=== PATIENT | female | born 1950 | race Caucasian/White ===

== ENCOUNTER 2018-08-01 18:16 | Emergency (ER) | payer MEDICARE, OTHER ==
[~2018-08-01] VITALS: Ht 177.8 cm; Wt 61.0 kg
[2018-08-01] MEDS ORDERED: HYDROmorphone 1 mg/ml syringe IV ONE ×5 (18:40→21:45)
[2018-08-01] MEDS ORDERED: HYDR2TAB28 PO (19:32)
[2018-08-01] MEDS ORDERED: SPIR25TA5 PO (19:32)
[2018-08-01] MEDS ORDERED: MORP30CA16 PO (19:32)
[2018-08-01] MEDS ORDERED: LISI-600 PO (19:32)
[2018-08-01] MEDS ORDERED: METO-292 PO ×2 (19:32)
[2018-08-01] MEDS ORDERED: FURO-150 PO (19:32)
[2018-08-01] MEDS ORDERED: DULO-31 PO (19:32)
[2018-08-01 19:47] LABS: BASOPHILS % (AUTO) 0 % (0-1); EOSINOPHILS # (AUTO) 0.2 X10'3 (0-0.9); EOSINOPHILS % (AUTO) 1.4 % (0-6); HEMATOCRIT 34.7 % (35.0-45.0); HEMOGLOBIN 11.4 g/dl (12.0-16.0); LYMPHOCYTES % (AUTO) 6.2 % (21-51); MEAN CORPUSCULAR HEMOGLOBIN 26.6 PG (27.0-31.0); MEAN CORPUSCULAR HGB CONC 32.8 % (33.0-36.5); MEAN CORPUSCULAR VOLUME 81.1 FL (78-98); MEAN PLATELET VOLUME 7.3 FL (7.4-10.4); MONOCYTES # (AUTO) 1.1 X10'3 (0-0.9); MONOCYTES % (AUTO) 6.4 % (2-12); NEUTROPHILS # (AUTO) 14.1 X10'3 (1.8-7.7); PLATELET COUNT 417 X10'3 (140-440); RED BLOOD COUNT 4.28 X10'6 (4.20-5.60); RED CELL DISTRIBUTION WIDTH 14.6 % (11.5-14.5); WHITE BLOOD COUNT 16.4 X10'3 (4.5-11.0)
[2018-08-01 20:02] LABS: ALANINE AMINOTRANSFERASE 28 U/L (12-78); ALBUMIN 3.9 G/DL (3.4-5.0); ALBUMIN/GLOBULIN RATIO 1.2 (1.1-1.5); ALKALINE PHOSPHATASE 126 IU/L (46-116); ANION GAP 12 (8-16); ASPARTATE AMINO TRANSFERASE 29 U/L (10-37); BILIRUBIN,TOTAL 0.7 MG/DL (0.1-1.0); BLOOD UREA NITROGEN 17 MG/DL (7-18); BUN/CREATININE RATIO 15.5 (6.6-38.0); CALCIUM 9.1 MG/DL (8.5-10.1); CHLORIDE 85 MMOL/L (99-107); GLUCOSE 130 MG/DL (70-104); TOTAL CARBON DIOXIDE 29.1 MMOL/L (24-32); TOTAL PROTEIN 7.1 G/DL (6.4-8.2); eGFR 49 ML/MIN
[2018-08-01 20:15] LABS: POTASSIUM 2.2 MMOL/L (3.5-5.1)
[2018-08-01 20:16] LABS: SODIUM 126 MMOL/L (135-145)
[2018-08-01] MEDS: potassium 10mEq/100ml NS w/LIDOcaine (10mg/bag) IV SCH ×2 (20:41→21:46)
[2018-08-01 21:14] LABS: COLOR,URINE YELLOW (Yellow); GLUCOSE, URINE NEGATIVE (Neg); KETONES,URINE NEGATIVE (Neg); LEUKOCYTE ESTERASE ,URINE SMALL (Neg); NITRITES, URINE NEGATIVE (Neg); OCCULT BLOOD,URINE NEGATIVE (Neg); PH,URINE 5.5 (4.8-8.0); PROTEIN,URINE NEGATIVE (Neg); UROBILINOGEN,URINE 0.2 E.U/dL (0.2-1.0)
[2018-08-01 21:20] LABS: UA COLLECTION TYPE OTHER
[2018-08-01 21:21] LABS: CLARITY,URINE SLIGHTLY CLOUDY (Clear)
[2018-08-01 21:46] LABS: BACTERIA,URINE FEW /HPF (Neg); RBC,URINE NONE SEEN /HPF (0-2); SQUAMOUS EPITHELIAL CELL,UR MODERATE /LPF (FEW); TRANSITIONAL EPI CELLS,URINE FEW /HPF
[2018-08-01] MEDS ORDERED: HYDR8TAB16 PO (21:51)
[2018-08-01] MEDS ORDERED: [UNRECOGNIZED DRUG - CODE] PO (21:51)
[2018-08-01 22:11] LABS: ANISOCYTOSIS FEW; PLATELET ESTIMATE NORMAL; TOTAL CELLS COUNTED 100
[2018-08-01 22:12] LABS: TOXIC GRANULATION 1+
[2018-08-01 22:30] VITALS: BP 143/64
[2018-08-01 23:47] LABS: ALANINE AMINOTRANSFERASE 27 U/L (12-78); ALBUMIN 3.5 G/DL (3.4-5.0); ALBUMIN/GLOBULIN RATIO 1.1 (1.1-1.5); ALKALINE PHOSPHATASE 135 IU/L (46-116); ANION GAP 13 (8-16); ASPARTATE AMINO TRANSFERASE 29 U/L (10-37); BILIRUBIN,TOTAL 1.1 MG/DL (0.1-1.0); BLOOD UREA NITROGEN 17 MG/DL (7-18); BUN/CREATININE RATIO 13.4 (6.6-38.0); CHLORIDE 88 MMOL/L (99-107); CREATININE 1.27 MG/DL (0.40-0.90); GLUCOSE 143 MG/DL (70-104); SODIUM 128 MMOL/L (135-145); TOTAL CARBON DIOXIDE 27.5 MMOL/L (24-32); TOTAL PROTEIN 6.8 G/DL (6.4-8.2); eGFR 42 ML/MIN
[2018-08-01 23:52] LABS: POTASSIUM 2.6 MMOL/L (3.5-5.1)
[2018-08-02] MEDS ORDERED: HYDROmorphone 1 mg/ml syringe IV STA (00:10)
[2018-08-02] MEDS ORDERED: POTA10CA44 PO (00:14)
== END 2018-08-02 01:32 | disposition home or self-care (01) ==
LOC: ER 18:16
DX: S42.212A Unspecified displaced fracture of surgical neck of left humerus, initial encounter for closed fracture (principal); S30.810A Abrasion of lower back and pelvis, initial encounter; E87.6 Hypokalemia; E87.1 Hypo-osmolality and hyponatremia; J44.9 Chronic obstructive pulmonary disease, unspecified; I11.0 Hypertensive heart disease with heart failure; I50.9 Heart failure, unspecified; K31.84 Gastroparesis; Z90.710 Acquired absence of both cervix and uterus; Z60.2 Problems related to living alone; Z85.42 Personal history of malignant neoplasm of other parts of uterus; W01.0XXA Fall on same level from slipping, tripping and stumbling without subsequent striking against object, initial encounter; Y93.89 Activity, other specified; Y92.89 Other specified places as the place of occurrence of the external cause; Y99.8 Other external cause status
CPT/HCPCS: 29105; 36415; 71045; 72100; 73030; 80053; 81001; 85025; 87088; 96365; 96366; 96375; 96376; 99285; J1170; J3480

== ENCOUNTER 2019-06-12 12:49 | Emergency (ER) | payer MEDICARE, OTHER ==
[~2019-06-12] VITALS: Ht 177.8 cm; Wt 61.4 kg
[~2019-06-12 12:49] MED LIST: DULO-31 PO; FURO-150 PO; HYDR2TAB28 PO; LISI-600 PO; METO-292 PO; MORP30CA16 PO; SPIR25TA5 PO
[2019-06-12] MEDS ORDERED: HYDROcodone/acetaminophen 5mg/325mg tablet PO ONE (13:10)
--- NOTE | 2019-06-12 13:19 | NUR ---
RING WAS REMOVED FROM 4TH RIGHT DIGIT WITH LUBRICATION AND ABIGAIL VICK. NO ACTIVE BLEEDING. PT TOLERATED PROCEDURE WELL.
--- NOTE | 2019-06-12 13:41 | NUR ---
VASCULAR CALLED BACK AND IS ON THE WAY TO PERFORM TEST PER ORDERS
[2019-06-12 13:43] LABS: BASOPHILS # (AUTO) 0.1 X10'3 (0-0.2); EOSINOPHILS % (AUTO) 0.5 % (0-6); HEMATOCRIT 35.6 % (35.0-45.0); HEMOGLOBIN 11.8 g/dl (12.0-16.0); LYMPHOCYTES # (AUTO) 1.9 X10'3 (1.1-4.8); LYMPHOCYTES % (AUTO) 19.3 % (21-51); MEAN CORPUSCULAR HEMOGLOBIN 27.2 PG (27.0-31.0); MEAN CORPUSCULAR HGB CONC 33.3 g/dL (33.0-36.5); MEAN CORPUSCULAR VOLUME 81.9 FL (78-98); MEAN PLATELET VOLUME 7.9 FL (7.4-10.4); MONOCYTES # (AUTO) 0.7 X10'3 (0-0.9); MONOCYTES % (AUTO) 7.4 % (2-12); NEUTROPHILS # (AUTO) 7.1 X10'3 (1.8-7.7); NEUTROPHILS % (AUTO) 71.8 % (42-75); PLATELET COUNT 368 X10'3 (140-440); RED BLOOD COUNT 4.35 X10'6 (4.20-5.60); RED CELL DISTRIBUTION WIDTH 15.2 % (11.5-14.5); WHITE BLOOD COUNT 9.9 X10'3 (4.5-11.0)
--- NOTE | 2019-06-12 13:46 | NUR ---
vascular at bedside
[2019-06-12 14:02] LABS: PARTIAL THROMBOPLASTIN TIME 26 SECONDS (22-32)
[2019-06-12 14:09] LABS: ALANINE AMINOTRANSFERASE 24 U/L (12-78); ALBUMIN 3.5 G/DL (3.4-5.0); ALBUMIN/GLOBULIN RATIO 0.8 (1.1-1.5); ALKALINE PHOSPHATASE 182 IU/L (46-116); ANION GAP 12 (8-16); ASPARTATE AMINO TRANSFERASE 19 U/L (10-37); BILIRUBIN,TOTAL 0.3 MG/DL (0.1-1.0); C-REACTIVE PROTEIN 3.38 MG/DL (0.0-0.5); CALCIUM 9.1 MG/DL (8.5-10.1); CHLORIDE 103 MMOL/L (99-107); CREATININE 0.94 MG/DL (0.40-0.90); GLUCOSE 93 MG/DL (70-104); SODIUM 140 MMOL/L (135-145); TOTAL CARBON DIOXIDE 25.1 MMOL/L (24-32); TOTAL PROTEIN 7.7 G/DL (6.4-8.2); eGFR 59 ML/MIN
[2019-06-12 14:14] LABS: POTASSIUM 2.9 MMOL/L (3.5-5.1)
[2019-06-12] MEDS ORDERED: potassium Cl 20 mEq SR tablet PO STA (14:16)
[2019-06-12 14:26] LABS: BLOOD UREA NITROGEN 14 MG/DL (7-18); BUN/CREATININE RATIO 14.9 (6.6-38.0)
[2019-06-12] MEDS ORDERED: CLIN-96 PO (14:39)
[2019-06-12] MEDS ORDERED: HYDR-4384 PO (14:39)
[2019-06-12] MEDS ORDERED: morphine 4 MG/ML inj SYRINge IM ONE (14:40)
[2019-06-12] MEDS ORDERED: clindamycin 150mg capsule PO ONE (14:55)
[2019-06-12 15:08] VITALS: BP 123/81
== END 2019-06-12 15:10 | disposition home or self-care (01) ==
LOC: ER 12:50
DX: L03.113 Cellulitis of right upper limb (principal); I11.0 Hypertensive heart disease with heart failure; I50.9 Heart failure, unspecified; J44.9 Chronic obstructive pulmonary disease, unspecified; M19.90 Unspecified osteoarthritis, unspecified site; I38 Endocarditis, valve unspecified; F17.200 Nicotine dependence, unspecified, uncomplicated; Z90.710 Acquired absence of both cervix and uterus; Z79.2 Long term (current) use of antibiotics; Z79.899 Other long term (current) drug therapy
CPT/HCPCS: 36415; 73130; 80053; 83605; 84145; 85025; 85610; 85651; 85730; 86140; 93971; 96372; 99284; J2270; 96374

== ENCOUNTER 2019-06-14 11:57 | Emergency (ER) | payer MEDICARE, OTHER ==
[~2019-06-14] VITALS: Ht 177.8 cm; Wt 60.5 kg
[~2019-06-14 11:57] MED LIST changes: +CLIN-96 PO; +HYDR-4384 PO
[2019-06-14 11:58] VITALS: BP 155/81
[2019-06-14 14:48] LABS: BASOPHILS # (AUTO) 0.1 X10'3 (0-0.2); BASOPHILS % (AUTO) 1.1 % (0-1); EOSINOPHILS # (AUTO) 0.1 X10'3 (0-0.9); EOSINOPHILS % (AUTO) 0.7 % (0-6); HEMATOCRIT 35.6 % (35.0-45.0); HEMOGLOBIN 11.7 g/dl (12.0-16.0); LYMPHOCYTES # (AUTO) 1.7 X10'3 (1.1-4.8); LYMPHOCYTES % (AUTO) 19.9 % (21-51); MEAN CORPUSCULAR HEMOGLOBIN 27.2 PG (27.0-31.0); MEAN CORPUSCULAR HGB CONC 32.9 g/dL (33.0-36.5); MEAN CORPUSCULAR VOLUME 82.5 FL (78-98); MEAN PLATELET VOLUME 8.2 FL (7.4-10.4); MONOCYTES # (AUTO) 0.7 X10'3 (0-0.9); MONOCYTES % (AUTO) 7.8 % (2-12); NEUTROPHILS # (AUTO) 5.9 X10'3 (1.8-7.7); NEUTROPHILS % (AUTO) 70.5 % (42-75); PLATELET COUNT 352 X10'3 (140-440); RED BLOOD COUNT 4.31 X10'6 (4.20-5.60); RED CELL DISTRIBUTION WIDTH 15.4 % (11.5-14.5); WHITE BLOOD COUNT 8.4 X10'3 (4.5-11.0)
[2019-06-14 15:04] LABS: ALANINE AMINOTRANSFERASE 23 U/L (12-78); ALBUMIN 3.4 G/DL (3.4-5.0); ALBUMIN/GLOBULIN RATIO 0.8 (1.1-1.5); ALKALINE PHOSPHATASE 175 IU/L (46-116); ANION GAP 10 (8-16); ASPARTATE AMINO TRANSFERASE 24 U/L (10-37); BILIRUBIN,TOTAL 0.3 MG/DL (0.1-1.0); BLOOD UREA NITROGEN 13 MG/DL (7-18); BUN/CREATININE RATIO 14.8 (6.6-38.0); C-REACTIVE PROTEIN 2.11 MG/DL (0.0-0.5); CALCIUM 9.5 MG/DL (8.5-10.1); CHLORIDE 103 MMOL/L (99-107); CREATININE 0.88 MG/DL (0.40-0.90); GLUCOSE 104 MG/DL (70-104); POTASSIUM 3.1 MMOL/L (3.5-5.1); SODIUM 140 MMOL/L (135-145); TOTAL CARBON DIOXIDE 27.5 MMOL/L (24-32); TOTAL PROTEIN 7.8 G/DL (6.4-8.2); eGFR 64 ML/MIN
[2019-06-14] MEDS ORDERED: AMOX-422 PO (15:04)
== END 2019-06-14 15:37 | disposition home or self-care (01) ==
LOC: ER 11:57
DX: L03.113 Cellulitis of right upper limb (principal); I11.0 Hypertensive heart disease with heart failure; I50.9 Heart failure, unspecified; J44.9 Chronic obstructive pulmonary disease, unspecified; M19.90 Unspecified osteoarthritis, unspecified site; Z90.710 Acquired absence of both cervix and uterus; Z79.899 Other long term (current) drug therapy
CPT/HCPCS: 36415; 80053; 85025; 85610; 85651; 86140; 99284

== ENCOUNTER 2019-06-16 11:58 | Emergency (ER) | payer MEDICARE, OTHER ==
[~2019-06-16] VITALS: Ht 177.8 cm; Wt 60.0 kg
[~2019-06-16 11:58] MED LIST changes: +AMOX-422 PO; +CLIN-90 PO; -CLIN-96 PO
--- NOTE | 2019-06-16 14:07 | NUR ---
Break RN: Souleymane COFFEY at bedside.
[2019-06-16 14:43] LABS: BASOPHILS # (AUTO) 0.1 X10'3 (0-0.2); BASOPHILS % (AUTO) 0.6 % (0-1); EOSINOPHILS % (AUTO) 0.4 % (0-6); HEMATOCRIT 34.7 % (35.0-45.0); HEMOGLOBIN 11.6 g/dl (12.0-16.0); LYMPHOCYTES # (AUTO) 1.4 X10'3 (1.1-4.8); LYMPHOCYTES % (AUTO) 15.1 % (21-51); MEAN CORPUSCULAR HEMOGLOBIN 27.3 PG (27.0-31.0); MEAN CORPUSCULAR HGB CONC 33.5 g/dL (33.0-36.5); MEAN CORPUSCULAR VOLUME 81.4 FL (78-98); MEAN PLATELET VOLUME 7.9 FL (7.4-10.4); MONOCYTES # (AUTO) 0.7 X10'3 (0-0.9); MONOCYTES % (AUTO) 7.5 % (2-12); NEUTROPHILS % (AUTO) 76.4 % (42-75); PLATELET COUNT 371 X10'3 (140-440); RED BLOOD COUNT 4.26 X10'6 (4.20-5.60); RED CELL DISTRIBUTION WIDTH 15.1 % (11.5-14.5); WHITE BLOOD COUNT 9.2 X10'3 (4.5-11.0)
[2019-06-16 14:57] LABS: ALANINE AMINOTRANSFERASE 20 U/L (12-78); ALBUMIN 3.3 G/DL (3.4-5.0); ALBUMIN/GLOBULIN RATIO 0.8 (1.1-1.5); ALKALINE PHOSPHATASE 190 IU/L (46-116); ANION GAP 11 (8-16); ASPARTATE AMINO TRANSFERASE 16 U/L (10-37); BILIRUBIN,TOTAL 0.3 MG/DL (0.1-1.0); BLOOD UREA NITROGEN 12 MG/DL (7-18); BUN/CREATININE RATIO 13.6 (6.6-38.0); C-REACTIVE PROTEIN 1.74 MG/DL (0.0-0.5); CALCIUM 9.1 MG/DL (8.5-10.1); CHLORIDE 103 MMOL/L (99-107); CREATININE 0.88 MG/DL (0.40-0.90); GLUCOSE 102 MG/DL (70-104); SODIUM 142 MMOL/L (135-145); TOTAL CARBON DIOXIDE 28.2 MMOL/L (24-32); TOTAL PROTEIN 7.6 G/DL (6.4-8.2); eGFR 64 ML/MIN
[2019-06-16] MEDS ORDERED: potassium Cl 20 mEq SR tablet PO STA (15:04)
[2019-06-16] MEDS ORDERED: HYDROcodone/acetaminophen 5mg/325mg tablet PO ONE (15:10)
[2019-06-16] MEDS ORDERED: colchicine 0.6mg tablet PO ONE (15:25)
[2019-06-16] MEDS ORDERED: CLIN300C17 PO (15:25)
[2019-06-16] MEDS ORDERED: HYDR-4383 PO (15:46)
[2019-06-16] MEDS ORDERED: COLC0.6T69 PO (15:46)
[2019-06-16 16:14] VITALS: BP 131/72
== END 2019-06-16 17:00 | disposition home or self-care (01) ==
LOC: ER 11:59
DX: M13.841 Other specified arthritis, right hand (principal); I11.0 Hypertensive heart disease with heart failure; I50.9 Heart failure, unspecified; J44.9 Chronic obstructive pulmonary disease, unspecified; Z90.710 Acquired absence of both cervix and uterus; Z79.899 Other long term (current) drug therapy
CPT/HCPCS: 36415; 80053; 85025; 85651; 86140; 99284

== ENCOUNTER 2020-11-15 23:06 | Emergency (ER) | payer MEDICARE, OTHER ==
[~2020-11-15] VITALS: Ht 177.8 cm; Wt 68.2 kg
[~2020-11-15 23:06] MED LIST changes: -AMOX-422 PO; -CLIN-90 PO; +CLIN300C17 PO; +COLC0.6T72 PO; -DULO-31 PO; -FURO-150 PO; +HYDR-4383 PO; -HYDR-4384 PO; -HYDR2TAB28 PO; -LISI-600 PO; -METO-292 PO; -MORP30CA16 PO; -SPIR25TA5 PO
--- NOTE | 2020-11-15 23:08 | NUR ---
POSION CONTROL CALLED PT TOOK 72 MIRTAZAPINE 15MG AROUND 2229
--- NOTE | 2020-11-15 23:11 | NUR ---
POSION CONTROL SAID PAY ATTENTION FOR SEDATION, TACHY OR BRADYCARDIA, HYPO OR HYPERTENSION, CHARCOL IS ADVISED IF NO ASPIRATION PRECAUTIONS, MONITOR FOR A MIN OF 6 HRS IF PT STAYS AT BASELINE. GET ASPIRIN AND TYLENOL LEVELS.
[2020-11-15] MEDS ORDERED: charcoal/sorbitol 25GM/120ML oral SUSPension PO ONE (23:20)
[2020-11-15 23:28] LABS: HEMOGLOBIN 12.7 g/dl (12.0-16.0); MEAN CORPUSCULAR VOLUME 87.3 FL (78-98)
[2020-11-15 23:30] LABS: BASOPHILS # (AUTO) 0.1 X10'3 (0-0.2); BASOPHILS % (AUTO) 0.9 % (0-1); EOSINOPHILS # (AUTO) 0.1 X10'3 (0-0.9); HEMATOCRIT 37.4 % (35.0-45.0); LYMPHOCYTES # (AUTO) 2.2 X10'3 (1.1-4.8); MEAN CORPUSCULAR HEMOGLOBIN 29.8 PG (27.0-31.0); MEAN CORPUSCULAR HGB CONC 34.1 g/dL (33.0-36.5); MONOCYTES # (AUTO) 0.5 X10'3 (0-0.9); MONOCYTES % (AUTO) 6.2 % (2-12); NEUTROPHILS # (AUTO) 5.5 X10'3 (1.8-7.7); NEUTROPHILS % (AUTO) 65.9 % (42-75); PLATELET COUNT 240 X10'3 (140-440); RED BLOOD COUNT 4.28 X10'6 (4.20-5.60); RED CELL DISTRIBUTION WIDTH 12.5 % (11.5-14.5); WHITE BLOOD COUNT 8.3 X10'3 (4.5-11.0)
--- NOTE | 2020-11-16 00:03 | NUR ---
PT DRINKING CHARCOAL, WITH DIFFICULT FROM TASTE BUT NO ASPIRATION, WILL CONTINUE TO MONITOR
[2020-11-16 00:04] LABS: ALANINE AMINOTRANSFERASE 32 U/L (12-78); ALBUMIN 3.5 G/DL (3.4-5.0); ALKALINE PHOSPHATASE 207 IU/L (46-116); ANION GAP 13 (8-16); ASPARTATE AMINO TRANSFERASE 32 U/L (10-37); BILIRUBIN,TOTAL 0.2 MG/DL (0.1-1.0); BLOOD UREA NITROGEN 18 MG/DL (7-18); BUN/CREATININE RATIO 15.3 (6.6-38.0); CHLORIDE 105 MMOL/L (99-107); CREATININE 1.18 MG/DL (0.40-0.90); GLUCOSE 154 MG/DL (70-104); SODIUM 140 MMOL/L (135-145); TOTAL CARBON DIOXIDE 21.8 MMOL/L (24-32); eGFR 45 ML/MIN
[2020-11-16 00:13] LABS: ACETAMINOPHEN < 2.0 UG/ML (10-30)
[2020-11-16 00:14] LABS: ETHANOL 0.038 GM/DL (0.0-0.010)
[2020-11-16 00:36] LABS: POTASSIUM 3.2 MMOL/L (3.5-5.1)
[2020-11-16 02:01] LABS: URINE AMPHETAMINE SCREEN NEGATIVE (Neg); URINE BARBITUATE SCREEN NEGATIVE (Neg); URINE BENZODIAZEPINES SCREEN NEGATIVE (Neg); URINE CANNABINOID SCREEN POSITIVE (Neg); URINE COCAINE SCREEN NEGATIVE (Neg); URINE METHADONE SCREEN NEGATIVE (Neg); URINE OPIATE SCREEN NEGATIVE (Neg); URINE PHENCYCLIDINE SCREEN NEGATIVE (Neg)
[2020-11-16] MEDS ORDERED: potassium Cl 20 mEq SR tablet PO STA (02:09)
[2020-11-16] MEDS ORDERED: magnesium oxide 400mg tablet PO ONE (02:10)
--- NOTE | 2020-11-16 03:00 | NUR ---
pt did not want to swallow medications at this time. she asked if she could in the morning. dr davila is aware and rdered am retime of medications
--- NOTE | 2020-11-16 06:57 | NUR ---
PACKET FAXED TO [facility]
[2020-11-16] MEDS ORDERED: potassium Cl 20 mEq SR tablet PO SCH (07:00)
[2020-11-16] MEDS ORDERED: magnesium oxide 400mg tablet PO SCH (07:00)
[2020-11-16 08:31] VITALS: BP 114/70
== END 2020-11-16 10:09 ==
LOC: ER 23:06
DX: T43.022A Poisoning by tetracyclic antidepressants, intentional self-harm, initial encounter (principal); I11.0 Hypertensive heart disease with heart failure; I50.9 Heart failure, unspecified; J44.9 Chronic obstructive pulmonary disease, unspecified; M19.90 Unspecified osteoarthritis, unspecified site; Z90.710 Acquired absence of both cervix and uterus; Z60.2 Problems related to living alone; Z79.899 Other long term (current) drug therapy; Y92.89 Other specified places as the place of occurrence of the external cause
CPT/HCPCS: 71045; 74018; 80053; 80305; 80320; 80329; 83880; 84484; 85025; 93005; 99285

== ENCOUNTER 2021-06-07 03:22 | Inpatient (IN) | payer MEDICARE, OTHER ==
[~2021-06-07] VITALS: Ht 172.7 cm; Wt 65.5 kg
[2021-06-07] VITALS (16 sets, daily range): BP systolic 88–140; BP diastolic 50–94
[2021-06-07] MEDS ORDERED: pantoprazole 40 MG vial IV STA (03:23)
[2021-06-07] MEDS ORDERED: MIDAZolam 5mg/ml 2ml vial IV STA (03:23)
[2021-06-07] MEDS ORDERED: famotidine/PF 10 mg/ml inj IV STA (03:23)
[2021-06-07] MEDS ORDERED: rocuronium 10mg/ml inj IV ONE ×2 (03:25→08:00)
[2021-06-07] MEDS ORDERED: etomidate 2mg/ml inj. IV ONE (03:25)
[2021-06-07] MEDS: midazolam 100mg in NS 100ml 100 ML IV PRN (03:50)
[2021-06-07 04:02] LABS: ABG BASE EXCESS -2.1 mmol/L (-2.0-2.0); ABG HCO3 23.1 mmol/L (22.0-26.0); ABG PCO2 (T) 41.2 mmHg (32.0-45.0); ABG PO2 (T) 182.9 mmHg (75.0-100.0); PEEP 5 cm H2O; RESPIRATORY RATE 16 b/min; TIDAL VOLUME 400 mL
[2021-06-07] MEDS: FENTANYL-0.9 % NACL/PF 100 ML IV PRN ×4 (04:02→20:38)
[2021-06-07 04:06] LABS: BASOPHILS % (AUTO) 0.4 % (0-1); EOSINOPHILS # (AUTO) 0.1 X10'3 (0-0.9); HEMATOCRIT 36.5 % (35.0-45.0); HEMOGLOBIN 12.2 g/dl (12.0-16.0); LYMPHOCYTES # (AUTO) 1.2 X10'3 (1.1-4.8); LYMPHOCYTES % (AUTO) 9.9 % (21-51); MEAN CORPUSCULAR HEMOGLOBIN 29.5 PG (27.0-31.0); MEAN CORPUSCULAR HGB CONC 33.3 g/dL (33.0-36.5); MEAN CORPUSCULAR VOLUME 88.5 FL (78-98); MEAN PLATELET VOLUME 9.9 FL (7.4-10.4); MONOCYTES # (AUTO) 0.7 X10'3 (0-0.9); MONOCYTES % (AUTO) 5.6 % (2-12); NEUTROPHILS % (AUTO) 83.1 % (42-75); PLATELET COUNT 219 X10'3 (140-440); RED BLOOD COUNT 4.13 X10'6 (4.20-5.60); RED CELL DISTRIBUTION WIDTH 12.9 % (11.5-14.5)
[2021-06-07] MEDS ORDERED: BACL10TA PO (04:07)
[2021-06-07] MEDS ORDERED: BUPR150T27 PO (04:07)
[2021-06-07] MEDS ORDERED: NAPR500T6 PO (04:07)
[2021-06-07] MEDS ORDERED: HYDR-3686 PO (04:07)
[2021-06-07] MEDS ORDERED: MIRT-87 PO (04:07)
[2021-06-07] MEDS ORDERED: NAPR375T5 PO (04:07)
[2021-06-07] MEDS: pantoprazole 40MG/NS 100ML BAG 100 ML IV SCH ×4 (04:11→19:10)
--- NOTE | 2021-06-07 04:20 | NUR ---
PT TO CT ACCOMPANIED BY SCARLET, RT, CT AND SOFÍA RN W/ MONITOR AND BAG VALVE RESPIRATIONS.
[2021-06-07 04:21] LABS: ALANINE AMINOTRANSFERASE 25 U/L (12-78); ALBUMIN 3.8 G/DL (3.4-5.0); ALBUMIN/GLOBULIN RATIO 1.4 (1.1-1.5); ALKALINE PHOSPHATASE 154 IU/L (46-116); ANION GAP 12 (8-16); ASPARTATE AMINO TRANSFERASE 31 U/L (10-37); BILIRUBIN,TOTAL 0.6 MG/DL (0.1-1.0); BLOOD UREA NITROGEN 21 MG/DL (7-18); BUN/CREATININE RATIO 16.2 (6.6-38.0); CALCIUM 9.1 MG/DL (8.5-10.1); CHLORIDE 105 MMOL/L (99-107); GLUCOSE 176 MG/DL (70-104); SODIUM 142 MMOL/L (135-145); TOTAL PROTEIN 6.5 G/DL (6.4-8.2); eGFR 40 ML/MIN
[2021-06-07 04:22] LABS: POTASSIUM 3.4 MMOL/L (3.5-5.1)
--- NOTE | 2021-06-07 05:20 | NUR ---
Patient son called to check on patient. Son was able to give information on medications for med rec. Son stated that he was unable to find pt bottle of wellbutrin with other medications. She should have had a weeks worth of Wellbutrin in bottle.
[2021-06-07 05:21] LABS: CLARITY,URINE CLEAR (Clear); COLOR,URINE YELLOW (Yellow); PROTEIN,URINE 30 mg/dl (Neg); UA COLLECTION TYPE NON-SPECIFIED
[2021-06-07 05:22] LABS: GLUCOSE, URINE NEGATIVE (Neg); KETONES,URINE NEGATIVE (Neg); LEUKOCYTE ESTERASE ,URINE NEGATIVE (Neg); NITRITES, URINE NEGATIVE (Neg); OCCULT BLOOD,URINE NEGATIVE (Neg); UROBILINOGEN,URINE 0.2 E.U/dL (0.2-1.0)
[2021-06-07 05:30] LABS: BACTERIA,URINE NONE SEEN /HPF (Neg); FINE GRANULAR CAST 0-3 /LPF (NEGATIVE); HYALINE CASTS 0-3 /LPF (NEGATIVE); RBC,URINE 0-2 /HPF (0-2); SQUAMOUS EPITHELIAL CELL,UR FEW /LPF (FEW); URINE AMPHETAMINE SCREEN NEGATIVE (Neg); URINE BARBITUATE SCREEN NEGATIVE (Neg); URINE BENZODIAZEPINES SCREEN POSITIVE (Neg); URINE CANNABINOID SCREEN POSITIVE (Neg); URINE COCAINE SCREEN NEGATIVE (Neg); URINE METHADONE SCREEN NEGATIVE (Neg); URINE OPIATE SCREEN NEGATIVE (Neg); URINE PHENCYCLIDINE SCREEN NEGATIVE (Neg); WBC,URINE NONE SEEN /HPF (0-4)
--- NOTE | 2021-06-07 05:49 | NUR ---
PT CLOTHING CUT OFF ON ARRIVAL. NO OTHTER PERSONAL BELONGINGS
[2021-06-07] MEDS ORDERED: magnesium 2GM in 50ml NS 50 ML IV ONE (06:55)
[2021-06-07] MEDS: K, MAG and/or Phos replacement - Verify level? MC SCH ×2 (07:00→08:00)
[2021-06-07] MEDS ORDERED: potassium Cl 20 mEq SR tablet PO PRN ×2 (07:00)
[2021-06-07] MEDS ORDERED: LIDOcaine 2% 10ml TOPICAL JELLY (Urojet) TP ONE (07:00)
[2021-06-07] MEDS ORDERED: acetaminophen 325mg tablet PO PRN ×2 (07:00)
[2021-06-07] MEDS ORDERED: magnesium hydroxide 30ml (MOM) UD suspension PO PRN (07:00)
[2021-06-07] MEDS ORDERED: etomidate 2mg/ml inj. ONE (08:00)
[2021-06-07] MEDS ORDERED: sod chloride 0.9% 10ml flush syringe IV ONE (08:00)
[2021-06-07] MEDS ORDERED: normal saline 1000ml 1,000 ML IVB ONE ×2 (08:15)
[2021-06-07] MEDS ORDERED: NORepinephrine inj. 32 MG in normal saline 250ml IV soln 218 ML IV SCH (08:15)
[2021-06-07] MEDS: NORepinephrine 8mg/ 250ml NS 250 ML IV SCH ×3 (08:30→20:38)
[2021-06-07 08:48] LABS: BASOPHILS % (AUTO) 0.1 % (0-1); EOSINOPHILS % (AUTO) 0.4 % (0-6); HEMATOCRIT 26.3 % (35.0-45.0); HEMOGLOBIN 8.8 g/dl (12.0-16.0); LYMPHOCYTES # (AUTO) 0.9 X10'3 (1.1-4.8); MEAN CORPUSCULAR HEMOGLOBIN 30.3 PG (27.0-31.0); MEAN CORPUSCULAR HGB CONC 33.4 g/dL (33.0-36.5); MEAN CORPUSCULAR VOLUME 90.6 FL (78-98); MEAN PLATELET VOLUME 9.6 FL (7.4-10.4); MONOCYTES # (AUTO) 0.7 X10'3 (0-0.9); MONOCYTES % (AUTO) 7.1 % (2-12); NEUTROPHILS # (AUTO) 8.1 X10'3 (1.8-7.7); NEUTROPHILS % (AUTO) 83.4 % (42-75); PLATELET COUNT 157 X10'3 (140-440); RED CELL DISTRIBUTION WIDTH 13.3 % (11.5-14.5); WHITE BLOOD COUNT 9.7 X10'3 (4.5-11.0)
[2021-06-07] MEDS ORDERED: diphenhydrAMINE 50 mg/ml inj IV ONE (09:10)
[2021-06-07] MEDS ORDERED: potassium Cl 40MEQ/1/2NS 520ml 520 ML IV PRN ×2 (09:10)
[2021-06-07 09:45] LABS: OCCULT BLOOD STOOL POSITIVE (Neg)
[2021-06-07 09:47] LABS: ACETAMINOPHEN 2.5 UG/ML (10-30); ETHANOL < 0.010 GM/DL (0.0-0.010)
--- NOTE | 2021-06-07 09:55 | NUR ---
Spoke to pt's son/caregiver. Gave update. Son adds that pt would be agreeable to transfusion if medically necessary.
--- NOTE | 2021-06-07 11:47 | NUR ---
Received report from ER nurse Marion HAY. Patient coming to room 2039.
--- NOTE | 2021-06-07 18:22 | NUR ---
Problems reprioritized. Patient report given, questions answered & plan of care reviewed with Agueda HAY.
--- NOTE | 2021-06-07 18:40 | NUR ---
I have received report and assumed care of pt, pt resting in bed rise and fall of chest cavity equile and symmetrical. Levophed in place to keep MAP greater then 60 via CVL. No s/sx of bleeding, versed in place for sedation, fentanyl in place for chronic pain control.
[2021-06-08] VITALS (25 sets, daily range): BP systolic 11–118; BP diastolic 44–66
[2021-06-08] MEDS: midazolam 100mg in NS 100ml 100 ML IV PRN ×2 (00:50→19:01)
[2021-06-08] MEDS: pantoprazole 40MG/NS 100ML BAG 100 ML IV SCH ×4 (00:51→15:35)
[2021-06-08] MEDS: NORepinephrine 8mg/ 250ml NS 250 ML IV SCH ×5 (00:51→19:02)
[2021-06-08] MEDS: FENTANYL-0.9 % NACL/PF 100 ML IV PRN ×5 (02:35→22:16)
[2021-06-08 02:38] LABS: BASOPHILS # (AUTO) 0.1 X10'3 (0-0.2); BASOPHILS % (AUTO) 0.3 % (0-1); EOSINOPHILS # (AUTO) 0.1 X10'3 (0-0.9); EOSINOPHILS % (AUTO) 0.7 % (0-6); HEMATOCRIT 40.5 % (35.0-45.0); HEMOGLOBIN 13.6 g/dl (12.0-16.0); LYMPHOCYTES # (AUTO) 2.3 X10'3 (1.1-4.8); LYMPHOCYTES % (AUTO) 14.8 % (21-51); MEAN CORPUSCULAR HEMOGLOBIN 30.2 PG (27.0-31.0); MEAN CORPUSCULAR HGB CONC 33.5 g/dL (33.0-36.5); MEAN PLATELET VOLUME 9.7 FL (7.4-10.4); MONOCYTES # (AUTO) 0.9 X10'3 (0-0.9); NEUTROPHILS # (AUTO) 12.2 X10'3 (1.8-7.7); NEUTROPHILS % (AUTO) 78.2 % (42-75); PLATELET COUNT 254 X10'3 (140-440); RED CELL DISTRIBUTION WIDTH 13.3 % (11.5-14.5); WHITE BLOOD COUNT 15.6 X10'3 (4.5-11.0)
[2021-06-08 02:51] LABS: ALBUMIN 2.9 G/DL (3.4-5.0); ANION GAP 7 (8-16); BLOOD UREA NITROGEN 16 MG/DL (7-18); BUN/CREATININE RATIO 13.2 (6.6-38.0); CALCIUM 8.2 MG/DL (8.5-10.1); CHLORIDE 113 MMOL/L (99-107); CREATININE 1.21 MG/DL (0.40-0.90); GLUCOSE 127 MG/DL (70-104); MAGNESIUM 2.2 MG/DL (1.5-2.4); PHOSPHORUS 2.3 MG/DL (2.3-4.5); POTASSIUM 4.1 MMOL/L (3.5-5.1); SODIUM 143 MMOL/L (135-145); TOTAL CARBON DIOXIDE 22.7 MMOL/L (24-32); eGFR 44 ML/MIN
[2021-06-08 03:17] LABS: ABG BASE EXCESS -8.7 mmol/L (-2.0-2.0); ABG HCO3 18.1 mmol/L (22.0-26.0); ABG OXYGEN SATURATION 91.8 % (94-97); ABG PCO2 (T) 40.1 mmHg (32.0-45.0); ALLEN'S TEST Modified; FCOHb 0.3 % (0.0-3.9); FMetHb 0.3 % (0.0-1.5); FO2Hb 91.2 % (94-97); PEEP 5 cm H2O; RESPIRATORY RATE 16 b/min; TIDAL VOLUME 400 mL; TOTAL HEMOGLOBIN 13.7 G/dl (12.0-16.0)
--- NOTE | 2021-06-08 06:20 | NUR ---
report given to rec rn plan of care reviewed
--- NOTE | 2021-06-08 06:42 | NUR ---
Patient in room ICU 2039. I have received report from Agueda HAY and had the opportunity to ask questions and assume patient care.
[2021-06-08] MEDS: K, MAG and/or Phos replacement - Verify level? MC SCH (08:00)
--- NOTE | 2021-06-08 14:18 | NUR ---
Initial: Pt admitted w/ ALOC, found unresponsive w/ coffee ground emesis per EMR. Pt currently intubated for airway protection w/ NGT for low intermittent suction, though minimal output per RN. RN states that Pt may go for EGD today, will be awaiting results for further plan of care. No documented BM. Limited nutrition interventions at this time given pt status, will continue to monitor. Recs: 1. Diet order per MD s/p EGD 2. Bowel care per rx 3. Scaled wt this admit, weekly wts thereafter Addendum: 06/08/21 at [address] Amended: Links added.
--- NOTE | 2021-06-08 15:29 | NUR ---
Spoke with bakari Woodall over the phone and gave update on pts condition.
[2021-06-08] MEDS: azithromycin/NS 500mg/250ml 250 ML IV SCH (16:52)
[2021-06-08] MEDS: vasopressin inj. 40 UNIT in normal saline 50ml IV soln 38 ML IV SCH (16:52)
[2021-06-08 17:29] LABS: HEMOGLOBIN 13.3 g/dl (12.0-16.0); MEAN CORPUSCULAR HEMOGLOBIN 29.8 PG (27.0-31.0); MEAN CORPUSCULAR HGB CONC 33.1 g/dL (33.0-36.5); MEAN CORPUSCULAR VOLUME 90.1 FL (78-98); MEAN PLATELET VOLUME 9.6 FL (7.4-10.4); PLATELET COUNT 228 X10'3 (140-440); RED BLOOD COUNT 4.45 X10'6 (4.20-5.60); RED CELL DISTRIBUTION WIDTH 13.9 % (11.5-14.5); WHITE BLOOD COUNT 17.7 X10'3 (4.5-11.0)
--- NOTE | 2021-06-08 18:10 | NUR ---
Problems reprioritized. Patient report given, questions answered & plan of care reviewed with Nolan HAY.
[2021-06-08] MEDS: pantoprazole 40 MG vial IV SCH (22:16)
[2021-06-09] VITALS (24 sets, daily range): BP systolic 88–135; BP diastolic 41–67
[2021-06-09] MEDS: NORepinephrine 8mg/ 250ml NS 250 ML IV SCH (02:37)
[2021-06-09] MEDS: FENTANYL-0.9 % NACL/PF 100 ML IV PRN ×2 (03:19→20:23)
[2021-06-09 03:20] LABS: ALBUMIN 2.4 G/DL (3.4-5.0); ANION GAP 14 (8-16); BLOOD UREA NITROGEN 18 MG/DL (7-18); BUN/CREATININE RATIO 14.1 (6.6-38.0); CALCIUM 8.6 MG/DL (8.5-10.1); CHLORIDE 113 MMOL/L (99-107); CREATININE 1.28 MG/DL (0.40-0.90); GLUCOSE 82 MG/DL (70-104); PHOSPHORUS 3.2 MG/DL (2.3-4.5); POTASSIUM 4.4 MMOL/L (3.5-5.1); SODIUM 146 MMOL/L (135-145); TOTAL CARBON DIOXIDE 19.5 MMOL/L (24-32); eGFR 41 ML/MIN
[2021-06-09 03:31] LABS: BASOPHILS % (AUTO) 0.2 % (0-1); EOSINOPHILS % (AUTO) 0 % (0-6); HEMOGLOBIN 13.2 g/dl (12.0-16.0); LYMPHOCYTES # (AUTO) 0.6 X10'3 (1.1-4.8); LYMPHOCYTES % (AUTO) 3.2 % (21-51); MEAN CORPUSCULAR HEMOGLOBIN 29.8 PG (27.0-31.0); MEAN CORPUSCULAR HGB CONC 33.1 g/dL (33.0-36.5); MEAN PLATELET VOLUME 9.9 FL (7.4-10.4); MONOCYTES # (AUTO) 1.3 X10'3 (0-0.9); MONOCYTES % (AUTO) 6.6 % (2-12); NEUTROPHILS # (AUTO) 18.3 X10'3 (1.8-7.7); PLATELET COUNT 229 X10'3 (140-440); RED BLOOD COUNT 4.44 X10'6 (4.20-5.60); RED CELL DISTRIBUTION WIDTH 14.1 % (11.5-14.5); WHITE BLOOD COUNT 20.4 X10'3 (4.5-11.0)
[2021-06-09 04:20] LABS: ABG BASE EXCESS -9.4 mmol/L (-2.0-2.0); ABG HCO3 18.6 mmol/L (22.0-26.0); ABG OXYGEN SATURATION 94.9 % (94-97); ABG PCO2 (T) 46.7 mmHg (32.0-45.0); ABG PO2 (T) 70.4 mmHg (75.0-100.0); ALLEN'S TEST Modified; FCOHb 0.3 % (0.0-3.9); FMetHb 0.3 % (0.0-1.5); FO2Hb 94.3 % (94-97); PEEP 5 cm H2O; RESPIRATORY RATE 16 b/min; TIDAL VOLUME 400 mL; TOTAL HEMOGLOBIN 12.7 G/dl (12.0-16.0)
[2021-06-09] MEDS ORDERED: ringers solution, lacted 1,000 ML IV ONE (04:25)
[2021-06-09] MEDS ORDERED: sodium bicarbonate (8.4%) inj. 150 MEQ in dextrose 5%-water 1,000 ML IV SCH (04:25)
[2021-06-09] MEDS: vasopressin inj. 40 UNIT in normal saline 50ml IV soln 38 ML IV SCH ×2 (04:52→22:54)
--- NOTE | 2021-06-09 06:20 | NUR ---
0500 rounded with md new orders received for abo increase in rate on ventilator, draw LA, and 1 Liter of LR Report given to rec rn plan of care reviewed
[2021-06-09 07:06] LABS: PLATELET ESTIMATE NORMAL; TOTAL CELLS COUNTED 100; TOXIC VACUOLATION 1+
[2021-06-09 07:07] LABS: LARGE PLATELETS FEW
[2021-06-09] MEDS: vancomycin/NS 1 GM ADD-VANTAGE 250 ML IV SCH ×2 (07:56→09:51)
[2021-06-09] MEDS: K, MAG and/or Phos replacement - Verify level? MC SCH (08:00)
[2021-06-09] MEDS: cefepime 1GM/NS ADD-VANTAGE 100 ML IV SCH ×2 (09:51→20:23)
[2021-06-09] MEDS: pantoprazole 40 MG vial IV SCH ×2 (09:52→20:22)
[2021-06-09] MEDS: azithromycin/NS 500mg/250ml 250 ML IV SCH (09:53)
[2021-06-09] MEDS ORDERED: magnesium 2GM in 50ml NS 50 ML IV ONE (11:10)
[2021-06-09] MEDS: enoxaparin 40mg/0.4ml syringe SQ SCH (12:04)
[2021-06-09 17:12] LABS: ABG BASE EXCESS -3.3 mmol/L (-2.0-2.0); ABG HCO3 20.9 mmol/L (22.0-26.0); ABG OXYGEN SATURATION 95.6 % (94-97); ABG PCO2 (T) 34.6 mmHg (32.0-45.0); ABG PO2 (T) 73.7 mmHg (75.0-100.0); ALLEN'S TEST POSITIVE; FCOHb 0.3 % (0.0-3.9); FMetHb 0.4 % (0.0-1.5); FO2Hb 94.9 % (94-97); PEEP 5 cm H2O; RESPIRATORY RATE 22 b/min; TIDAL VOLUME 400 mL; TOTAL HEMOGLOBIN 13.2 G/dl (12.0-16.0)
[2021-06-10] VITALS (28 sets, daily range): BP systolic 85–131; BP diastolic 44–70
--- NOTE | 2021-06-10 00:05 | NUR ---
no changes in status noted frequent turning to maintain skin integrity
[2021-06-10 00:54] LABS: BASOPHILS % (AUTO) 0.1 % (0-1); EOSINOPHILS % (AUTO) 0.2 % (0-6); HEMATOCRIT 34.3 % (35.0-45.0); HEMOGLOBIN 11.9 g/dl (12.0-16.0); LYMPHOCYTES # (AUTO) 0.7 X10'3 (1.1-4.8); LYMPHOCYTES % (AUTO) 4.5 % (21-51); MEAN CORPUSCULAR HEMOGLOBIN 30.4 PG (27.0-31.0); MEAN CORPUSCULAR HGB CONC 34.8 g/dL (33.0-36.5); MEAN CORPUSCULAR VOLUME 87.3 FL (78-98); MEAN PLATELET VOLUME 9.8 FL (7.4-10.4); MONOCYTES % (AUTO) 6.8 % (2-12); NEUTROPHILS # (AUTO) 13.2 X10'3 (1.8-7.7); NEUTROPHILS % (AUTO) 88.4 % (42-75); PLATELET COUNT 192 X10'3 (140-440); RED BLOOD COUNT 3.92 X10'6 (4.20-5.60); RED CELL DISTRIBUTION WIDTH 13.6 % (11.5-14.5); WHITE BLOOD COUNT 14.9 X10'3 (4.5-11.0)
[2021-06-10 01:02] LABS: ALBUMIN 1.8 G/DL (3.4-5.0); ANION GAP 10 (8-16); BLOOD UREA NITROGEN 22 MG/DL (7-18); BUN/CREATININE RATIO 17.7 (6.6-38.0); CALCIUM 8.4 MG/DL (8.5-10.1); CHLORIDE 113 MMOL/L (99-107); CREATININE 1.24 MG/DL (0.40-0.90); GLUCOSE 126 MG/DL (70-104); MAGNESIUM 2.2 MG/DL (1.5-2.4); PHOSPHORUS 2.1 MG/DL (2.3-4.5); POTASSIUM 3.8 MMOL/L (3.5-5.1); SODIUM 146 MMOL/L (135-145); TOTAL CARBON DIOXIDE 22.7 MMOL/L (24-32); eGFR 43 ML/MIN
[2021-06-10] MEDS: FENTANYL-0.9 % NACL/PF 100 ML IV PRN ×3 (01:45→20:27)
[2021-06-10 02:56] LABS: ABG BASE EXCESS -1.7 mmol/L (-2.0-2.0); ABG HCO3 21.5 mmol/L (22.0-26.0); ABG OXYGEN SATURATION 96.5 % (94-97); ABG PCO2 (T) 32.2 mmHg (32.0-45.0); ABG PO2 (T) 83.5 mmHg (75.0-100.0); ALLEN'S TEST Modified; FCOHb 0.3 % (0.0-3.9); FMetHb 0.1 % (0.0-1.5); FO2Hb 96.1 % (94-97); PATIENT TEMPERATURE 37.2; PEEP 5 cm H2O; RESPIRATORY RATE 22 b/min; TIDAL VOLUME 400 mL
[2021-06-10] MEDS: midazolam 100mg in NS 100ml 100 ML IV PRN (05:26)
--- NOTE | 2021-06-10 05:55 | NUR ---
I have received report and assumed care of pt. Pt resting in bed rise and fall of chest cavity equile and symmetrical, titrating Levo down to keep MP greater then 60. via CVL, fentanyl drip in place for pain control. versed in place for sedation vasopressin in place for blood pressure suport to keep MAP greater then 60
--- NOTE | 2021-06-10 06:14 | NUR ---
report given to rec rn plan of care reviewed
[2021-06-10] MEDS: cefepime 1GM/NS ADD-VANTAGE 100 ML IV SCH ×2 (07:23→20:25)
[2021-06-10] MEDS: pantoprazole 40 MG vial IV SCH ×2 (07:23→20:25)
[2021-06-10] MEDS: enoxaparin 40mg/0.4ml syringe SQ SCH (07:31)
[2021-06-10] MEDS: K, MAG and/or Phos replacement - Verify level? MC SCH (08:00)
[2021-06-10] MEDS ORDERED: bisacodyl 10mg suppository rectal RC ONE (11:10)
[2021-06-10] MEDS ORDERED: magnesium 1 gm/2ml inj. 1 GM in normal saline 50ml IV soln 50 ML IV ONE (11:15)
[2021-06-10] MEDS ORDERED: midazolam 1 mg/ML 2ml injection IV PRN (11:20)
[2021-06-10] MEDS ORDERED: potassium phosphate inj 15 MMOL in normal saline 250ml IV soln 250 ML IV ONE (11:20)
[2021-06-10] MEDS: potassium Cl 10 mEq/100mL bag IV SCH ×2 (11:32→12:18)
[2021-06-10] MEDS: dextrose 5%-water 1,000 ML IV SCH ×2 (11:42→20:26)
[2021-06-10] MEDS ORDERED: sodium phosphate inj. 30 MMOL in dextrose 5%-water 250 ML IV PRN (12:15)
[2021-06-10] MEDS ORDERED: magnesium 4gm in 100ml NS 100 ML IV PRN (12:15)
[2021-06-10] MEDS ORDERED: magnesium Cl slow-release 64mg tablet PO PRN (12:15)
[2021-06-10] MEDS ORDERED: Neutra Phos packet PO PRN (12:15)
[2021-06-10] MEDS ORDERED: sodium phosphate inj. 15 MMOL in dextrose 5%-water 250 ML IV PRN (12:15)
[2021-06-10] MEDS ORDERED: magnesium 2GM in 50ml NS 50 ML IV PRN (12:15)
[2021-06-10] MEDS: NORepinephrine 8mg/ 250ml NS 250 ML IV SCH (12:42)
[2021-06-10] MEDS: polyethylene glycol 3350 17gm powd pack PO SCH (13:09)
[2021-06-10] MEDS ORDERED: dextrose 50%-water 50ml dispensing syringe IV ONE (14:28)
--- NOTE | 2021-06-10 18:22 | NUR ---
Problems reprioritized. Patient report given, questions answered & plan of care reviewed with Zoran.
[2021-06-10] MEDS: lactobacillus rhamnosus 10,000 MMU CELLS/CAPSULE PO SCH (20:25)
[2021-06-10] MEDS ORDERED: propofol 1000mg/100ml bottle 100 ML IV SCH (23:00)
[2021-06-11] VITALS (21 sets, daily range): BP systolic 93–162; BP diastolic 45–94
[2021-06-11] MEDS: vasopressin inj. 40 UNIT in normal saline 50ml IV soln 38 ML IV SCH (00:30)
[2021-06-11 02:22] LABS: BASOPHILS % (AUTO) 0.3 % (0-1); EOSINOPHILS # (AUTO) 0.2 X10'3 (0-0.9); EOSINOPHILS % (AUTO) 2.4 % (0-6); HEMATOCRIT 31.7 % (35.0-45.0); HEMOGLOBIN 10.8 g/dl (12.0-16.0); LYMPHOCYTES # (AUTO) 0.8 X10'3 (1.1-4.8); LYMPHOCYTES % (AUTO) 8.3 % (21-51); MEAN CORPUSCULAR HEMOGLOBIN 30.5 PG (27.0-31.0); MEAN CORPUSCULAR HGB CONC 34.2 g/dL (33.0-36.5); MEAN PLATELET VOLUME 9.5 FL (7.4-10.4); MONOCYTES # (AUTO) 0.6 X10'3 (0-0.9); MONOCYTES % (AUTO) 6.4 % (2-12); NEUTROPHILS # (AUTO) 7.8 X10'3 (1.8-7.7); NEUTROPHILS % (AUTO) 82.6 % (42-75); PLATELET COUNT 175 X10'3 (140-440); RED BLOOD COUNT 3.56 X10'6 (4.20-5.60); RED CELL DISTRIBUTION WIDTH 13.9 % (11.5-14.5); WHITE BLOOD COUNT 9.5 X10'3 (4.5-11.0)
[2021-06-11 02:36] LABS: ALBUMIN 1.5 G/DL (3.4-5.0); ANION GAP 6 (8-16); BLOOD UREA NITROGEN 27 MG/DL (7-18); BUN/CREATININE RATIO 25.5 (6.6-38.0); CHLORIDE 108 MMOL/L (99-107); CREATININE 1.06 MG/DL (0.40-0.90); GLUCOSE 91 MG/DL (70-104); MAGNESIUM 2.2 MG/DL (1.5-2.4); PHOSPHORUS 2.4 MG/DL (2.3-4.5); SODIUM 139 MMOL/L (135-145); TOTAL CARBON DIOXIDE 24.8 MMOL/L (24-32); TRIGLYCERIDES 115 MG/DL (20-135); eGFR 51 ML/MIN
[2021-06-11 02:53] LABS: ABG BASE EXCESS -0.6 mmol/L (-2.0-2.0); ABG HCO3 21.1 mmol/L (22.0-26.0); ABG OXYGEN SATURATION 95.1 % (94-97); ABG PCO2 (T) 26.7 mmHg (32.0-45.0); ABG PO2 (T) 71.6 mmHg (75.0-100.0); ALLEN'S TEST Modified; FCOHb 0.3 % (0.0-3.9); FMetHb 0.2 % (0.0-1.5); FO2Hb 94.6 % (94-97); PATIENT TEMPERATURE 37.4; PEEP 5 cm H2O; RESPIRATORY RATE 22 b/min; TIDAL VOLUME 400 mL; TOTAL HEMOGLOBIN 11.6 G/dl (12.0-16.0)
[2021-06-11 05:05] LABS: ABG BASE EXCESS -2.5 mmol/L (-2.0-2.0); ABG HCO3 21.1 mmol/L (22.0-26.0); ABG OXYGEN SATURATION 94.2 % (94-97); ABG PCO2 (T) 33.3 mmHg (32.0-45.0); ABG PO2 (T) 71.5 mmHg (75.0-100.0); ALLEN'S TEST Modified; FCOHb 0.3 % (0.0-3.9); FMetHb 0.2 % (0.0-1.5); FO2Hb 93.7 % (94-97); PATIENT TEMPERATURE 37.4; PEEP 5 cm H2O; RESPIRATORY RATE 18 b/min; TIDAL VOLUME 400 mL; TOTAL HEMOGLOBIN 12.4 G/dl (12.0-16.0)
[2021-06-11] MEDS: FENTANYL-0.9 % NACL/PF 100 ML IV PRN (05:14)
[2021-06-11] MEDS: NORepinephrine 8mg/ 250ml NS 250 ML IV SCH (07:45)
[2021-06-11] MEDS: K, MAG and/or Phos replacement - Verify level? MC SCH (08:00)
[2021-06-11] MEDS: cefepime 1GM/NS ADD-VANTAGE 100 ML IV SCH (08:01)
[2021-06-11] MEDS: vancomycin/NS 1 GM ADD-VANTAGE 250 ML IV SCH (08:01)
[2021-06-11] MEDS: enoxaparin 40mg/0.4ml syringe SQ SCH (08:02)
[2021-06-11] MEDS: pantoprazole 40 MG vial IV SCH ×2 (08:02→19:22)
[2021-06-11] MEDS: lactobacillus rhamnosus 10,000 MMU CELLS/CAPSULE PO SCH (08:02)
[2021-06-11] MEDS: polyethylene glycol 3350 17gm powd pack PO SCH (08:03)
[2021-06-11] MEDS: dextrose 5%-water 1,000 ML IV SCH ×2 (08:06→16:43)
[2021-06-11] MEDS ORDERED: magnesium hydroxide 30ml (MOM) UD suspension OGT PRN (08:54)
[2021-06-11] MEDS ORDERED: acetaminophen 325mg tablet OGT PRN (08:54)
[2021-06-11] MEDS ORDERED: Neutra Phos packet OGT PRN (08:54)
[2021-06-11] MEDS ORDERED: potassium Cl 20 mEq SR tablet OGT PRN (08:55)
[2021-06-11] MEDS: dexmedetomidin/NS 400mcg/100ml 100 ML IV SCH (11:16)
--- NOTE | 2021-06-11 11:53 | NUR ---
Reassessment: Pt remains intubated though w/ plan for extubation today per Director Skills. Recommend BSS eval s/p extubation prior to diet advancement. Pt remains on D5 at 100ml/hr providing 408kcals while NPO.Limited nutrition interventions at this time given pt status, will continue to monitor s/p extubation and make recommendations as appropriate. Recs: 1. BSS ST eval s/p extubation, advance to Heart Healthy diet as medically indicated 2. Bowel care per rx 3. Scaled wt this admit, weekly wts thereafter Addendum: 06/11/21 at [address] Amended: Links added.
[2021-06-11] MEDS ORDERED: naloxone 0.4 mg/ml inj IV ONE (13:00)
[2021-06-11] MEDS ORDERED: naloxone 0.4 mg/ml inj ONE (13:02)
--- NOTE | 2021-06-11 15:48 | NUR ---
Patient in room ICU 2039. I have received report from Jordan HAY and had the opportunity to ask questions and assume patient care.
[2021-06-11] MEDS: ceFAZolin/D5W- 1GM premix 50 ML IV SCH (16:41)
--- NOTE | 2021-06-11 18:35 | NUR ---
Problems reprioritized. Patient report given, questions answered & plan of care reviewed with Marion HAY.
[2021-06-11] MEDS: lactobacillus rhamnosus 10,000 MMU CELLS/CAPSULE OGT SCH (19:22)
--- NOTE | 2021-06-11 20:43 | NUR ---
patient given small scoops of yogurt with meds tolerates well. patient not able to tolerate ice chips or sips of water. Addendum: 06/11/21 at 2043 by Marion Petty RN Amended: Links added.
[2021-06-12] VITALS (24 sets, daily range): BP systolic 95–140; BP diastolic 52–80
[2021-06-12] MEDS: dextrose 5%-water 1,000 ML IV SCH (00:07)
[2021-06-12] MEDS: ceFAZolin/D5W- 1GM premix 50 ML IV SCH ×4 (00:08→23:36)
[2021-06-12] MEDS: dexmedetomidin/NS 400mcg/100ml 100 ML IV SCH ×3 (00:08→20:39)
--- NOTE | 2021-06-12 03:30 | NUR ---
patient becomes restless, asks what is going on. patient reoriented. patient regained strenght. patient asked to calm mental assessment completed. patient alert and oriented to all spheres. patient asked what does she remember up to the point of being unconscious on the floow. patient states that she fell in the kitchen and that she rememebrs it. patient given sips of water and was able to tolerate well. patient regained strenght in all her limbs and also patient speaks much moreclear than at the start of shift. remarkable improvement noted.
[2021-06-12 04:27] LABS: BASOPHILS % (AUTO) 0.2 % (0-1); EOSINOPHILS # (AUTO) 0.1 X10'3 (0-0.9); EOSINOPHILS % (AUTO) 0.8 % (0-6); HEMATOCRIT 28.7 % (35.0-45.0); HEMOGLOBIN 9.6 g/dl (12.0-16.0); LYMPHOCYTES # (AUTO) 0.6 X10'3 (1.1-4.8); LYMPHOCYTES % (AUTO) 5.8 % (21-51); MEAN CORPUSCULAR HEMOGLOBIN 30.2 PG (27.0-31.0); MEAN CORPUSCULAR HGB CONC 33.5 g/dL (33.0-36.5); MEAN CORPUSCULAR VOLUME 90.1 FL (78-98); MEAN PLATELET VOLUME 9.6 FL (7.4-10.4); MONOCYTES # (AUTO) 0.9 X10'3 (0-0.9); MONOCYTES % (AUTO) 8.7 % (2-12); NEUTROPHILS # (AUTO) 8.4 X10'3 (1.8-7.7); NEUTROPHILS % (AUTO) 84.5 % (42-75); PLATELET COUNT 169 X10'3 (140-440); RED BLOOD COUNT 3.18 X10'6 (4.20-5.60); RED CELL DISTRIBUTION WIDTH 14.1 % (11.5-14.5)
[2021-06-12 04:41] LABS: ALBUMIN 1.5 G/DL (3.4-5.0); ANION GAP 5 (8-16); BLOOD UREA NITROGEN 16 MG/DL (7-18); BUN/CREATININE RATIO 18.2 (6.6-38.0); CALCIUM 7.2 MG/DL (8.5-10.1); CHLORIDE 114 MMOL/L (99-107); CREATININE 0.88 MG/DL (0.40-0.90); GLUCOSE 71 MG/DL (70-104); MAGNESIUM 1.7 MG/DL (1.5-2.4); PHOSPHORUS 2.1 MG/DL (2.3-4.5); SODIUM 143 MMOL/L (135-145); TOTAL CARBON DIOXIDE 24.5 MMOL/L (24-32); eGFR 63 ML/MIN
[2021-06-12 04:47] LABS: POTASSIUM 2.7 MMOL/L (3.5-5.1)
--- NOTE | 2021-06-12 05:02 | NUR ---
Dr. Joaquin notified about critical lab k 2.7, prn protocols in place for k less than 3.1 pharmacy informed to send bag k
--- NOTE | 2021-06-12 06:30 | NUR ---
Patient in room ICU 2039. I have received report from Marion HAY and had the opportunity to ask questions and assume patient care. Pt restless, semi fowlers in bed, alert. pt able to state year, location, surroundings correctly, however, pt ruminating about her dogs. therapeutic conversation employed and moderately effective. safety measures in place. pt within RN line of sight. no sob. no s/sx acute distress.
[2021-06-12] MEDS ORDERED: VANCOMYCIN LEVEL IV ONE (07:30)
[2021-06-12] MEDS ORDERED: pantoprazole 40mg Tablet.DR PO SCH (08:00)
[2021-06-12] MEDS: NAPROXEN 500 MG PO SCH ×2 (08:00→19:32)
[2021-06-12] MEDS: buPROPion SR 150mg tablet PO SCH (08:38)
[2021-06-12] MEDS: baclofen 10mg tablet PO PRN (08:38)
[2021-06-12] MEDS: lactobacillus rhamnosus 10,000 MMU CELLS/CAPSULE OGT SCH ×2 (08:39→19:32)
[2021-06-12] MEDS: enoxaparin 40mg/0.4ml syringe SQ SCH (08:39)
[2021-06-12] MEDS: polyethylene glycol 3350 17gm powd pack OGT SCH (08:39)
[2021-06-12] MEDS: K, MAG and/or Phos replacement - Verify level? MC SCH (08:49)
[2021-06-12] MEDS ORDERED: dexmedetomidin/NS 400mcg/100ml 100 ML IV SCH (09:45)
[2021-06-12 15:18] LABS: ABG BASE EXCESS 2.6 mmol/L (-2.0-2.0); ABG HCO3 25.6 mmol/L (22.0-26.0); ABG OXYGEN SATURATION 91.9 % (94-97); ABG PO2 (T) 57.8 mmHg (75.0-100.0); ALLEN'S TEST POSITIVE; FCOHb 0.1 % (0.0-3.9); FO2Hb 91.8 % (94-97); TOTAL HEMOGLOBIN 11.6 G/dl (12.0-16.0)
--- NOTE | 2021-06-12 18:03 | NUR ---
Pt continues anxious, oppositional to safety measures despite repeated redirection and education. pt pulling at subclavian IV, removing BIpap from face (and as a result spo2 dropping into 70's.) Restraints placed with clear verbalization of criteria "stop removing bipap/ pulling at lines, follow safe directions." pt states she needs to go home to her dogs and not verbalizing understanding of the gravity of oxygen dependence at this time.
--- NOTE | 2021-06-12 18:45 | NUR ---
Problems reprioritized. Patient report given, questions answered & plan of care reviewed with Tammy HAY. Pt supine in bed, bipap in place, sitter at bedside. no s/sx acute distress.
[2021-06-12] MEDS: hydrOXYzine 25 MG tablet PO SCH ×2 (20:56→20:59)
[2021-06-12] MEDS: mirtazapine 15mg tablet PO SCH ×2 (20:57→20:59)
[2021-06-13] VITALS (24 sets, daily range): BP systolic 86–144; BP diastolic 48–82
[2021-06-13] MEDS: dexmedetomidin/NS 400mcg/100ml 100 ML IV SCH ×2 (00:35→05:08)
[2021-06-13] MEDS ORDERED: LORazepam 2 mg/ml vial IV ONE (03:15)
--- NOTE | 2021-06-13 03:20 | NUR ---
Pt attempting to get OOB, remove her Bipap and kick staff. Pt continues to be in restraints with sitter at bedside. Addendum: 06/13/21 at 0356 by Tammy Sesay RN Amended: Links added.
--- NOTE | 2021-06-13 03:25 | NUR ---
notified of pts behavior Ativan 2mg IV administered as ordered 0345: pt calm and relaxed. Will continue to monitor. Addendum: 06/13/21 at 0400 by Tammy Sesay RN Amended: Links added.
[2021-06-13 04:11] LABS: BASOPHILS % (AUTO) 0.1 % (0-1); EOSINOPHILS # (AUTO) 0.1 X10'3 (0-0.9); EOSINOPHILS % (AUTO) 0.8 % (0-6); HEMATOCRIT 34.1 % (35.0-45.0); HEMOGLOBIN 11.8 g/dl (12.0-16.0); LYMPHOCYTES % (AUTO) 6.8 % (21-51); MEAN CORPUSCULAR HEMOGLOBIN 30.3 PG (27.0-31.0); MEAN CORPUSCULAR HGB CONC 34.7 g/dL (33.0-36.5); MEAN CORPUSCULAR VOLUME 87.5 FL (78-98); MEAN PLATELET VOLUME 9.6 FL (7.4-10.4); MONOCYTES # (AUTO) 1.4 X10'3 (0-0.9); MONOCYTES % (AUTO) 10.1 % (2-12); NEUTROPHILS # (AUTO) 11.8 X10'3 (1.8-7.7); NEUTROPHILS % (AUTO) 82.2 % (42-75); PLATELET COUNT 211 X10'3 (140-440); WHITE BLOOD COUNT 14.4 X10'3 (4.5-11.0)
[2021-06-13 04:18] LABS: ALBUMIN 1.9 G/DL (3.4-5.0); ANION GAP 11 (8-16); BLOOD UREA NITROGEN 15 MG/DL (7-18); BUN/CREATININE RATIO 14.3 (6.6-38.0); CALCIUM 8.5 MG/DL (8.5-10.1); CHLORIDE 107 MMOL/L (99-107); CREATININE 1.05 MG/DL (0.40-0.90); GLUCOSE 79 MG/DL (70-104); MAGNESIUM 1.6 MG/DL (1.5-2.4); POTASSIUM 3.8 MMOL/L (3.5-5.1); SODIUM 143 MMOL/L (135-145); TOTAL CARBON DIOXIDE 25.3 MMOL/L (24-32); eGFR 52 ML/MIN
--- NOTE | 2021-06-13 06:27 | NUR ---
Problems reprioritized. Patient report given, questions answered & plan of care reviewed with Melida HAY. Addendum: 06/13/21 at 0628 by Tammy Sesay RN Amended: Links added.
--- NOTE | 2021-06-13 06:30 | NUR ---
Patient in room ICU 2039. I have received report from SATNAM MAYS, and had the opportunity to ask questions and assume patient care.
[2021-06-13] MEDS: buPROPion SR 150mg tablet PO SCH (08:00)
[2021-06-13] MEDS: K, MAG and/or Phos replacement - Verify level? MC SCH (08:00)
[2021-06-13] MEDS: lactobacillus rhamnosus 10,000 MMU CELLS/CAPSULE OGT SCH ×2 (08:00→20:58)
[2021-06-13] MEDS: polyethylene glycol 3350 17gm powd pack OGT SCH (08:00)
[2021-06-13] MEDS: NAPROXEN 500 MG PO SCH ×2 (08:00→20:59)
[2021-06-13] MEDS: ceFAZolin/D5W- 1GM premix 50 ML IV SCH ×2 (08:37→16:11)
[2021-06-13] MEDS: enoxaparin 40mg/0.4ml syringe SQ SCH (08:38)
[2021-06-13] MEDS: DEXMEDETOMIDINE IV SCH ×2 (10:12→16:21)
[2021-06-13] MEDS: NS IV SCH ×2 (10:12→16:21)
--- NOTE | 2021-06-13 11:33 | NUR ---
F/u 06/13: VIOLETA d/w RN regarding no nutrition intake day 6 w/ pt refusing current pureed/thin/heart healthy meals per [employer] recs and NPO previously on vent. Pt w/ full face bipap in restraints w/ sitter at this time. RN is agreeable to try EN if MD agreeable though if pt not stable enough for NG does have central line in place for PN. Will monitor for nutrition support needs if MD agreeable. Recs: 1. continue pureed/Heart Healthy/thin diet per [employer] recs 2. consider NG for nutrition given day 6 no nutrition this admit on full face bipap able to take some PO meds IF MD agreeable 3. IF pt to remain in restrains w/ sitter unable to tolerate NG placement consider PN to meet nutrition needs IF MD agreeable; pt already w/ central line per RN 4. Bowel care per rx 5. Scaled wt this admit, weekly wts thereafter Addendum: 06/13/21 at [address] Amended: Links added.
--- NOTE | 2021-06-13 13:28 | NUR ---
2039 MELLISA HOLBROOK, COULD PT BE Placed on a tower high carson, to remove bipap, to place ng tube. Thank you, Melida
--- NOTE | 2021-06-13 14:43 | NUR ---
TF Consult: Pt pending corpak placement w/ TF to start today per on site coordinator; TF recs below using IBW as pending scaled wt this admit. LBM 06/11. Will monitor for TF tolerance and adjustment needs. F/u 06/13: RD d/w RN regarding no nutrition intake day 6 w/ pt refusing current pureed/thin/heart healthy meals per [employer] recs and NPO previously on vent. Pt w/ full face bipap in restraints w/ sitter at this time. RN is agreeable to try EN if MD agreeable though if pt not stable enough for NG does have central line in place for PN. Will monitor for nutrition support needs if MD agreeable. Recs: 1. continuous TF per MD using Jevity 1.2 at 65ml/hr goal; to provide 1560 ml volume/day, 1872 kcals, 1264ml water, and 87g protein. 2. additional water flush 200ml Q4H; monitor for serum Na and adjustment needs 3. PALB Q /; daily wts 4. monitor for TF tolerance and adjustment needs 5. Bowel care per rx 6. Once more appropriate for diet to advance; advance to regular per [employer]/MD recs Addendum: 06/13/21 at [address] Amended: Links added.
--- NOTE | 2021-06-13 18:34 | NUR ---
Problems reprioritized. Patient report given, questions answered & plan of care reviewed with SATNAM MARSHALL.
--- NOTE | 2021-06-13 18:35 | NUR ---
Patient in room ICU 2039. I have received report from SATNAM Monetz and had the opportunity to ask questions and assume patient care.
[2021-06-13] MEDS: hydrOXYzine 25 MG tablet PO SCH (20:58)
[2021-06-13] MEDS: mirtazapine 15mg tablet PO SCH (20:58)
[2021-06-14] VITALS (23 sets, daily range): BP systolic 99–156; BP diastolic 52–97
[2021-06-14] MEDS: ceFAZolin/D5W- 1GM premix 50 ML IV SCH ×3 (00:23→16:19)
--- NOTE | 2021-06-14 00:30 | NUR ---
Resident in bed awake and alert with sitter at bedside. Pt pulled out the NG tube, stating her nose is hurting and refused to reinsert it back, Police Chief Deputy made aware. Tolerated 2 cup of tea. Safety measures and comfort maintained. Will continue to monitor.
[2021-06-14] MEDS: acetaminophen 325mg tablet OGT PRN ×2 (01:38→16:20)
--- NOTE | 2021-06-14 06:31 | NUR ---
Problems reprioritized. Patient report given, questions answered & plan of care reviewed with SATNAM Montez.
--- NOTE | 2021-06-14 06:47 | NUR ---
Patient in room ICU 2039. I have received report from SATNAM MARSHALL, and had the opportunity to ask questions and assume patient care.
[2021-06-14 06:55] LABS: BASOPHILS % (AUTO) 0.3 % (0-1); EOSINOPHILS # (AUTO) 0.1 X10'3 (0-0.9); EOSINOPHILS % (AUTO) 0.6 % (0-6); HEMATOCRIT 36.1 % (35.0-45.0); HEMOGLOBIN 12.4 g/dl (12.0-16.0); LYMPHOCYTES # (AUTO) 1.1 X10'3 (1.1-4.8); MEAN CORPUSCULAR HGB CONC 34.2 g/dL (33.0-36.5); MEAN CORPUSCULAR VOLUME 87.6 FL (78-98); MEAN PLATELET VOLUME 9.4 FL (7.4-10.4); MONOCYTES # (AUTO) 1.7 X10'3 (0-0.9); MONOCYTES % (AUTO) 12.4 % (2-12); NEUTROPHILS # (AUTO) 10.9 X10'3 (1.8-7.7); NEUTROPHILS % (AUTO) 78.7 % (42-75); PLATELET COUNT 307 X10'3 (140-440); RED BLOOD COUNT 4.12 X10'6 (4.20-5.60); WHITE BLOOD COUNT 13.9 X10'3 (4.5-11.0)
[2021-06-14 07:20] LABS: ALBUMIN 1.8 G/DL (3.4-5.0); ANION GAP 11 (8-16); BLOOD UREA NITROGEN 18 MG/DL (7-18); BUN/CREATININE RATIO 15.4 (6.6-38.0); CALCIUM 8.2 MG/DL (8.5-10.1); CHLORIDE 106 MMOL/L (99-107); CREATININE 1.17 MG/DL (0.40-0.90); GLUCOSE 72 MG/DL (70-104); MAGNESIUM 1.9 MG/DL (1.5-2.4); PHOSPHORUS 2.7 MG/DL (2.3-4.5); POTASSIUM 3.3 MMOL/L (3.5-5.1); SODIUM 142 MMOL/L (135-145); TOTAL CARBON DIOXIDE 24.8 MMOL/L (24-32); eGFR 46 ML/MIN
[2021-06-14] MEDS: K, MAG and/or Phos replacement - Verify level? MC SCH (08:00)
[2021-06-14] MEDS: enoxaparin 40mg/0.4ml syringe SQ SCH (08:21)
[2021-06-14] MEDS: buPROPion SR 150mg tablet PO SCH (08:21)
[2021-06-14] MEDS: NAPROXEN 500 MG PO SCH ×2 (08:22→21:17)
[2021-06-14] MEDS: lactobacillus rhamnosus 10,000 MMU CELLS/CAPSULE OGT SCH ×2 (08:22→21:17)
[2021-06-14] MEDS: polyethylene glycol 3350 17gm powd pack OGT SCH (08:22)
[2021-06-14] MEDS: potassium Cl 20 mEq SR tablet OGT PRN ×3 (10:52→21:18)
[2021-06-14] MEDS: baclofen 10mg tablet PO PRN ×2 (13:58→21:18)
--- NOTE | 2021-06-14 18:43 | NUR ---
Problems reprioritized. Patient report given, questions answered & plan of care reviewed with SATNAM LOVELACE.
--- NOTE | 2021-06-14 19:19 | NUR ---
Patient in room ICU 2039. I have received report from Melida HAY and had the opportunity to ask questions and assume patient care.
[2021-06-14] MEDS: mirtazapine 15mg tablet OGT SCH (21:17)
[2021-06-14] MEDS: hydrOXYzine 25 MG tablet OGT SCH (21:18)
[2021-06-15] VITALS (18 sets, daily range): BP systolic 106–166; BP diastolic 62–96
[2021-06-15] MEDS: ceFAZolin/D5W- 1GM premix 50 ML IV SCH ×2 (00:50→08:10)
[2021-06-15 04:20] LABS: BASOPHILS % (AUTO) 0.3 % (0-1); EOSINOPHILS # (AUTO) 0.1 X10'3 (0-0.9); EOSINOPHILS % (AUTO) 0.7 % (0-6); HEMATOCRIT 36.3 % (35.0-45.0); HEMOGLOBIN 12.1 g/dl (12.0-16.0); LYMPHOCYTES # (AUTO) 0.8 X10'3 (1.1-4.8); LYMPHOCYTES % (AUTO) 5.1 % (21-51); MEAN CORPUSCULAR HEMOGLOBIN 29.5 PG (27.0-31.0); MEAN CORPUSCULAR HGB CONC 33.2 g/dL (33.0-36.5); MEAN PLATELET VOLUME 9.2 FL (7.4-10.4); MONOCYTES % (AUTO) 6.3 % (2-12); NEUTROPHILS # (AUTO) 14.1 X10'3 (1.8-7.7); NEUTROPHILS % (AUTO) 87.6 % (42-75); PLATELET COUNT 345 X10'3 (140-440); RED BLOOD COUNT 4.08 X10'6 (4.20-5.60); RED CELL DISTRIBUTION WIDTH 14.1 % (11.5-14.5); WHITE BLOOD COUNT 16.1 X10'3 (4.5-11.0)
[2021-06-15 04:25] LABS: ALBUMIN 1.9 G/DL (3.4-5.0); ANION GAP 10 (8-16); BLOOD UREA NITROGEN 18 MG/DL (7-18); BUN/CREATININE RATIO 19.4 (6.6-38.0); CALCIUM 8.3 MG/DL (8.5-10.1); CHLORIDE 108 MMOL/L (99-107); CREATININE 0.93 MG/DL (0.40-0.90); GLUCOSE 102 MG/DL (70-104); MAGNESIUM 1.9 MG/DL (1.5-2.4); PHOSPHORUS 2.6 MG/DL (2.3-4.5); POTASSIUM 3.9 MMOL/L (3.5-5.1); SODIUM 147 MMOL/L (135-145); TOTAL CARBON DIOXIDE 28.8 MMOL/L (24-32); eGFR 59 ML/MIN
[2021-06-15] MEDS: NS IV SCH ×3 (04:49→20:21)
[2021-06-15] MEDS: DEXMEDETOMIDINE IV SCH ×3 (04:49→20:21)
--- NOTE | 2021-06-15 06:43 | NUR ---
Problems reprioritized. Patient report given, questions answered & plan of care reviewed with Nirav HAY.
[2021-06-15] MEDS: K, MAG and/or Phos replacement - Verify level? MC SCH (08:00)
[2021-06-15] MEDS: NAPROXEN 500 MG PO SCH ×2 (08:00→20:12)
[2021-06-15] MEDS: baclofen 10mg tablet PO PRN (08:06)
[2021-06-15] MEDS: mirtazapine 15mg tablet OGT SCH (08:07)
[2021-06-15] MEDS: lactobacillus rhamnosus 10,000 MMU CELLS/CAPSULE OGT SCH ×2 (08:08→20:11)
[2021-06-15] MEDS: buPROPion 75mg tablet OGT SCH (08:08)
[2021-06-15] MEDS: enoxaparin 40mg/0.4ml syringe SQ SCH (08:10)
[2021-06-15] MEDS: polyethylene glycol 3350 17gm powd pack OGT SCH (08:11)
[2021-06-15] MEDS: acetaminophen 325mg tablet OGT PRN (11:00)
[2021-06-15] MEDS: nicotine 21mg patch - 24 hr TD SCH (11:01)
[2021-06-15] MEDS: hydrOXYzine 25 MG tablet OGT SCH (20:11)
[2021-06-16] VITALS (22 sets, daily range): BP systolic 76–147; BP diastolic 52–98
[2021-06-16 03:25] LABS: HEMOGLOBIN 10.2 g/dl (12.0-16.0); MONOCYTES # (AUTO) 0.8 X10'3 (0-0.9)
[2021-06-16 03:26] LABS: BASOPHILS % (AUTO) 0.2 % (0-1); EOSINOPHILS # (AUTO) 0.3 X10'3 (0-0.9); EOSINOPHILS % (AUTO) 2.2 % (0-6); LYMPHOCYTES # (AUTO) 1.4 X10'3 (1.1-4.8); LYMPHOCYTES % (AUTO) 9.3 % (21-51); MEAN CORPUSCULAR HEMOGLOBIN 29.9 PG (27.0-31.0); MEAN PLATELET VOLUME 8.7 FL (7.4-10.4); MONOCYTES % (AUTO) 5.1 % (2-12); NEUTROPHILS # (AUTO) 12.6 X10'3 (1.8-7.7); NEUTROPHILS % (AUTO) 83.2 % (42-75); PLATELET COUNT 327 X10'3 (140-440); RED BLOOD COUNT 3.41 X10'6 (4.20-5.60); RED CELL DISTRIBUTION WIDTH 14.2 % (11.5-14.5); WHITE BLOOD COUNT 15.1 X10'3 (4.5-11.0)
[2021-06-16 03:54] LABS: ALBUMIN 1.6 G/DL (3.4-5.0); ANION GAP 6 (8-16); BLOOD UREA NITROGEN 24 MG/DL (7-18); BUN/CREATININE RATIO 25.3 (6.6-38.0); CALCIUM 7.6 MG/DL (8.5-10.1); CHLORIDE 109 MMOL/L (99-107); CREATININE 0.95 MG/DL (0.40-0.90); GLUCOSE 113 MG/DL (70-104); MAGNESIUM 1.9 MG/DL (1.5-2.4); PHOSPHORUS 3.1 MG/DL (2.3-4.5); POTASSIUM 3.5 MMOL/L (3.5-5.1); SODIUM 146 MMOL/L (135-145); eGFR 58 ML/MIN
[2021-06-16] MEDS: K, MAG and/or Phos replacement - Verify level? MC SCH (08:00)
[2021-06-16] MEDS: ceFAZolin/D5W- 1GM premix 50 ML IV SCH ×2 (08:53→16:13)
[2021-06-16] MEDS: lactobacillus rhamnosus 10,000 MMU CELLS/CAPSULE OGT SCH ×2 (08:53→21:10)
[2021-06-16] MEDS: polyethylene glycol 3350 17gm powd pack OGT SCH (08:53)
[2021-06-16] MEDS: nicotine 21mg patch - 24 hr TD SCH (08:59)
[2021-06-16] MEDS: NAPROXEN 500 MG PO SCH ×2 (09:00→20:00)
[2021-06-16] MEDS: enoxaparin 40mg/0.4ml syringe SQ SCH (09:01)
[2021-06-16] MEDS: buPROPion 75mg tablet OGT SCH (09:03)
[2021-06-16] MEDS: baclofen 10mg tablet PO PRN ×2 (09:06→22:51)
[2021-06-16] MEDS: NS IV SCH (09:25)
[2021-06-16] MEDS: DEXMEDETOMIDINE IV SCH (09:25)
--- NOTE | 2021-06-16 17:30 | NUR ---
Pt has arrived to floor. No distress. Sitter with patient. NOC shift to cover patient soon.
--- NOTE | 2021-06-16 18:20 | NUR ---
Report given to Coral HAY. Pt up from ICU. Sitter in room. Pt doing well.
--- NOTE | 2021-06-16 18:45 | NUR ---
Patient in room PCU 3023. I have received report from SATNAM Saucedo and had the opportunity to ask questions and assume patient care.
[2021-06-16] MEDS: NAPROXEN 375 MG PO PRN (21:09)
[2021-06-16] MEDS: mirtazapine 15mg tablet OGT SCH (21:10)
[2021-06-16] MEDS: hydrOXYzine 25 MG tablet OGT SCH (21:10)
[2021-06-17] VITALS (27 sets, daily range): BP systolic 80–125; BP diastolic 43–73
--- NOTE | 2021-06-17 02:50 | NUR ---
Pt with 3 loose dark stools noted, and the last one is kind of bright red, face looks pale. B/P 80/49, P 109, R 18, 02 sat 96% via N/C @ 2L, T98.6. Dr Lomas sales person was paged.
--- NOTE | 2021-06-17 03:05 | NUR ---
Dr Lomas called made aware of patient condition, new order received for CBC in the morning lab.
[2021-06-17 04:11] LABS: BASOPHILS % (AUTO) 0.2 % (0-1); EOSINOPHILS % (AUTO) 0.1 % (0-6); LYMPHOCYTES # (AUTO) 1.6 X10'3 (1.1-4.8); MEAN CORPUSCULAR HEMOGLOBIN 29.6 PG (27.0-31.0); MEAN CORPUSCULAR HGB CONC 33.2 g/dL (33.0-36.5); MEAN CORPUSCULAR VOLUME 89.2 FL (78-98); MEAN PLATELET VOLUME 9.2 FL (7.4-10.4); MONOCYTES # (AUTO) 0.5 X10'3 (0-0.9); MONOCYTES % (AUTO) 2.3 % (2-12); NEUTROPHILS # (AUTO) 20.4 X10'3 (1.8-7.7); NEUTROPHILS % (AUTO) 90.4 % (42-75); PLATELET COUNT 333 X10'3 (140-440); RED BLOOD COUNT 1.91 X10'6 (4.20-5.60); RED CELL DISTRIBUTION WIDTH 14.6 % (11.5-14.5); WHITE BLOOD COUNT 22.6 X10'3 (4.5-11.0)
[2021-06-17 04:23] LABS: ALBUMIN 1.3 G/DL (3.4-5.0); ANION GAP 9 (8-16); BLOOD UREA NITROGEN 45 MG/DL (7-18); BUN/CREATININE RATIO 38.5 (6.6-38.0); CALCIUM 6.9 MG/DL (8.5-10.1); CHLORIDE 111 MMOL/L (99-107); CREATININE 1.17 MG/DL (0.40-0.90); GLUCOSE 179 MG/DL (70-104); MAGNESIUM 1.8 MG/DL (1.5-2.4); PHOSPHORUS 3.2 MG/DL (2.3-4.5); POTASSIUM 4.3 MMOL/L (3.5-5.1); SODIUM 146 MMOL/L (135-145); TOTAL CARBON DIOXIDE 26.1 MMOL/L (24-32); eGFR 46 ML/MIN
[2021-06-17 04:28] LABS: HEMATOCRIT 17.1 % (35.0-45.0); HEMOGLOBIN 5.7 g/dl (12.0-16.0)
--- NOTE | 2021-06-17 04:42 | NUR ---
Abnormal lab results received Hgb 5.7, Hct 17.1, paged Dr Vazquez.
[2021-06-17 04:52] LABS: TOTAL CELLS COUNTED 100
[2021-06-17 04:53] LABS: PLATELET ESTIMATE NORMAL; STOMATOCYTES 1+
[2021-06-17 04:55] LABS: TOXIC GRANULATION 1+
--- NOTE | 2021-06-17 04:58 | NUR ---
Dr Zhou called, new orders received and carried out. Pt will be transfer to ICU . 3 units of RBC STAT, Protonix drip, and Luis-synephrine if available.
--- NOTE | 2021-06-17 05:02 | NUR ---
Called pharmacy and Luis-synephrine is not available, will notified Dr Zhou.
--- NOTE | 2021-06-17 05:13 | NUR ---
Dr Zhou called and order 500 cc saline STAT, Called ICU and gave report to SATNAM العراقي.
[2021-06-17] MEDS ORDERED: normal saline 500ml IV soln 500 ML IV ONE (05:15)
--- NOTE | 2021-06-17 05:19 | NUR ---
Called placed to patient's son Viet Luna made aware that she was transfer to ICU , because her Hgb was low and she will be having 3 units of RBC transfusions.
--- NOTE | 2021-06-17 05:22 | NUR ---
Dr Zhou ph# [phone]. To call him in case of any emergency.
--- NOTE | 2021-06-17 05:31 | NUR ---
Problems reprioritized. Patient report given, questions answered & plan of care reviewed with SATNAM العراقي.
--- NOTE | 2021-06-17 05:32 | NUR ---
Report called to receiving nurse. Transferred via bed with all Belongings. Special Issues communicated to receiving nurse SATNAM العراقي.
[2021-06-17] MEDS ORDERED: phenylephrine inj 50 MG in normal saline 250ml IV soln 245 ML IV PRN (05:35)
[2021-06-17] MEDS: pantoprazole 40MG/NS 100ML BAG 100 ML IV SCH ×4 (06:26→23:19)
--- NOTE | 2021-06-17 06:30 | NUR ---
Patient in room ICU 2046. I have received report from SATNAM العراقي and had the opportunity to ask questions and assume patient care.
[2021-06-17] MEDS: K, MAG and/or Phos replacement - Verify level? MC SCH (08:00)
[2021-06-17] MEDS: polyethylene glycol 3350 17gm powd pack OGT SCH (08:00)
[2021-06-17] MEDS: NAPROXEN 500 MG PO SCH ×2 (08:00→20:00)
[2021-06-17] MEDS: baclofen 10mg tablet PO PRN (10:04)
[2021-06-17] MEDS: ceFAZolin/D5W- 1GM premix 50 ML IV SCH ×3 (10:04→16:14)
[2021-06-17] MEDS: lactobacillus rhamnosus 10,000 MMU CELLS/CAPSULE OGT SCH ×2 (10:04→20:00)
[2021-06-17] MEDS: buPROPion 75mg tablet OGT SCH (10:05)
[2021-06-17] MEDS: nicotine 21mg patch - 24 hr TD SCH (10:06)
[2021-06-17] MEDS: ondansetron/PF 4mg/2ml inj IV PRN ×2 (10:06→23:56)
[2021-06-17] MEDS ORDERED: vasopressin inj. 40 UNIT in normal saline 50ml IV soln 38 ML IV SCH (11:30)
[2021-06-17] MEDS ORDERED: LIDOcaine 2% 10ml TOPICAL JELLY (Urojet) TP ONE (12:05)
--- NOTE | 2021-06-17 12:10 | NUR ---
Reassessment 06/17: Pt did not end up getting TF and continued oral diet. Pt currently on SB6/Heart healthy per ST recs consuming about 25-50% of meals not meeting needs. Pt is noted to be confused or lethargic at times, may benefit from ONS at this time to help meet nutrient needs. Pt was transferred back to the floor but began having loose, dark stools 06/16 and is back in ICU; required emergent transfusions per EMR. Will continue to monitor. Recs: 1. Continue SB6/Heart Healthy diet as tolerated per ST recs 2. Ensure Enlive BID BD 3. Bowel care per rx 4. Scaled wt this admit Addendum: 06/17/21 at [address] Amended: Links added.
[2021-06-17 16:06] LABS: HEMATOCRIT 32.5 % (35.0-45.0); HEMOGLOBIN 10.6 g/dl (12.0-16.0); MEAN CORPUSCULAR HEMOGLOBIN 29.1 PG (27.0-31.0); MEAN CORPUSCULAR HGB CONC 32.7 g/dL (33.0-36.5); MEAN CORPUSCULAR VOLUME 88.8 FL (78-98); MEAN PLATELET VOLUME 9.7 FL (7.4-10.4); PLATELET COUNT 253 X10'3 (140-440); RED BLOOD COUNT 3.66 X10'6 (4.20-5.60); RED CELL DISTRIBUTION WIDTH 14.5 % (11.5-14.5)
[2021-06-17 16:27] LABS: WHITE BLOOD COUNT 48.5 X10'3 (4.5-11.0)
[2021-06-17] MEDS ORDERED: LIDOcaine Viscous 15ml cup ONE (17:24)
[2021-06-17] MEDS ORDERED: MIDAZolam 1 MG/ML 5ML VIAL ONE (17:24)
[2021-06-17] MEDS ORDERED: fentaNYL/PF 50MCG/1 ML 2ML syringe ONE (17:24)
--- NOTE | 2021-06-17 18:15 | NUR ---
Dr Do at bedside for EGD
--- NOTE | 2021-06-17 18:27 | NUR ---
Problems reprioritized. Patient report given, questions answered & plan of care reviewed with SATNAM العراقي.
[2021-06-17] MEDS ORDERED: epiNEPHrine 0.1mg/ml 10ml syringe ONE (19:18)
[2021-06-17] MEDS: lactose-reduced food (Ensure Enlive) - 237ml bottle PO SCH (20:49)
[2021-06-17] MEDS: hydrOXYzine 25 MG tablet OGT SCH (20:54)
[2021-06-17] MEDS: mirtazapine 15mg tablet OGT SCH (20:54)
[2021-06-17] MEDS: acetaminophen 325mg tablet OGT PRN (22:10)
[2021-06-17 22:43] LABS: BASOPHILS # (AUTO) 0.1 X10'3 (0-0.2); BASOPHILS % (AUTO) 0.2 % (0-1); EOSINOPHILS % (AUTO) 0 % (0-6); HEMATOCRIT 29.2 % (35.0-45.0); HEMOGLOBIN 9.8 g/dl (12.0-16.0); LYMPHOCYTES # (AUTO) 2.3 X10'3 (1.1-4.8); LYMPHOCYTES % (AUTO) 4.1 % (21-51); MEAN CORPUSCULAR HEMOGLOBIN 28.9 PG (27.0-31.0); MEAN CORPUSCULAR HGB CONC 33.6 g/dL (33.0-36.5); MEAN CORPUSCULAR VOLUME 86.1 FL (78-98); MEAN PLATELET VOLUME 9.5 FL (7.4-10.4); MONOCYTES # (AUTO) 1.5 X10'3 (0-0.9); MONOCYTES % (AUTO) 2.7 % (2-12); NEUTROPHILS # (AUTO) 53.4 X10'3 (1.8-7.7); PLATELET COUNT 293 X10'3 (140-440); RED CELL DISTRIBUTION WIDTH 14.1 % (11.5-14.5)
[2021-06-17 22:54] LABS: WHITE BLOOD COUNT 57.4 X10'3 (4.5-11.0)
[2021-06-17 23:54] LABS: BANDS% (MANUAL) 17.5 % (0-10); LYMPHOCYTES % (MANUAL) 1.5 % (21-51); METAMYLEOCYTES% (MANUAL) 0.5 % (0-0); MONOCYTES % (MANUAL) 0.5 % (2-12); NUCLEATED RED BLOOD CELLS 2 /100WBC (0-0); TOTAL CELLS COUNTED 200
[2021-06-17 23:55] LABS: PLATELET ESTIMATE NORMAL
[2021-06-17 23:56] LABS: TOXIC GRANULATION 1+
[2021-06-18] VITALS (24 sets, daily range): BP systolic 117–161; BP diastolic 59–81
[2021-06-18] MEDS: ceFAZolin/D5W- 1GM premix 50 ML IV SCH ×4 (01:46→16:10)
[2021-06-18] MEDS: baclofen 10mg tablet PO PRN ×2 (03:14→22:04)
[2021-06-18 04:05] LABS: BASOPHILS % (AUTO) 0 % (0-1); EOSINOPHILS % (AUTO) 0 % (0-6); HEMATOCRIT 28.5 % (35.0-45.0); HEMOGLOBIN 9.6 g/dl (12.0-16.0); LYMPHOCYTES # (AUTO) 2.1 X10'3 (1.1-4.8); LYMPHOCYTES % (AUTO) 3.8 % (21-51); MEAN CORPUSCULAR HEMOGLOBIN 29.1 PG (27.0-31.0); MEAN CORPUSCULAR HGB CONC 33.7 g/dL (33.0-36.5); MEAN CORPUSCULAR VOLUME 86.4 FL (78-98); MEAN PLATELET VOLUME 9.5 FL (7.4-10.4); MONOCYTES # (AUTO) 1.2 X10'3 (0-0.9); MONOCYTES % (AUTO) 2.2 % (2-12); NEUTROPHILS # (AUTO) 51.5 X10'3 (1.8-7.7); PLATELET COUNT 320 X10'3 (140-440); RED CELL DISTRIBUTION WIDTH 14.7 % (11.5-14.5)
[2021-06-18 04:16] LABS: WHITE BLOOD COUNT 54.8 X10'3 (4.5-11.0)
[2021-06-18 04:20] LABS: ALBUMIN 1.7 G/DL (3.4-5.0); ANION GAP 13 (8-16); BLOOD UREA NITROGEN 70 MG/DL (7-18); BUN/CREATININE RATIO 36.8 (6.6-38.0); CALCIUM 6.9 MG/DL (8.5-10.1); CHLORIDE 111 MMOL/L (99-107); GLUCOSE 214 MG/DL (70-104); MAGNESIUM 1.9 MG/DL (1.5-2.4); SODIUM 146 MMOL/L (135-145); TOTAL CARBON DIOXIDE 21.9 MMOL/L (24-32); TRIGLYCERIDES 148 MG/DL (20-135); eGFR 26 ML/MIN
[2021-06-18 04:49] LABS: NUCLEATED RED BLOOD CELLS 1 /100WBC (0-0); TOTAL CELLS COUNTED 100
[2021-06-18 04:50] LABS: PLATELET ESTIMATE NORMAL; POLYCHROMASIA FEW
[2021-06-18] MEDS ORDERED: normal saline 1000ml 1,000 ML IV ONE (05:10)
[2021-06-18] MEDS: pantoprazole 40MG/NS 100ML BAG 100 ML IV SCH ×5 (06:00→20:16)
[2021-06-18 06:29] LABS: UA COLLECTION TYPE FOLEY CATH
[2021-06-18 06:30] LABS: CLARITY,URINE Slightly Cloudy (Clear); COLOR,URINE Yellow (Yellow)
[2021-06-18 06:31] LABS: GLUCOSE, URINE Negative (Neg); KETONES,URINE Negative (Neg); PROTEIN,URINE 30 mg/dl (Neg)
[2021-06-18 06:32] LABS: LEUKOCYTE ESTERASE ,URINE Negative (Neg); NITRITES, URINE Negative (Neg); OCCULT BLOOD,URINE Moderate (Neg); UROBILINOGEN,URINE 0.2 E.U/dL (0.2-1.0)
[2021-06-18 06:42] LABS: BACTERIA,URINE NONE SEEN /HPF (Neg); MUCUS STRANDS FEW /LPF (Neg); RBC,URINE 0-2 /HPF (0-2); SQUAMOUS EPITHELIAL CELL,UR NONE SEEN /LPF (FEW); WBC,URINE NONE SEEN /HPF (0-4)
[2021-06-18 06:43] LABS: AMORPHOUS URATES 2+; YEAST FEW /HPF (NEGATIVE)
[2021-06-18] MEDS: lactose-reduced food (Ensure Enlive) - 237ml bottle PO SCH ×2 (07:30→17:30)
[2021-06-18] MEDS: ondansetron/PF 4mg/2ml inj IV PRN ×2 (07:41→20:10)
[2021-06-18] MEDS: NAPROXEN 500 MG PO SCH ×2 (08:00→20:09)
[2021-06-18] MEDS: polyethylene glycol 3350 17gm powd pack OGT SCH (08:00)
[2021-06-18] MEDS: K, MAG and/or Phos replacement - Verify level? MC SCH (08:00)
[2021-06-18] MEDS: buPROPion 75mg tablet OGT SCH (09:07)
[2021-06-18] MEDS: nicotine 21mg patch - 24 hr TD SCH (09:07)
[2021-06-18] MEDS: lactobacillus rhamnosus 10,000 MMU CELLS/CAPSULE OGT SCH ×2 (09:07→20:09)
[2021-06-18] MEDS: NAPROXEN 375 MG PO PRN (09:09)
[2021-06-18] MEDS: acetaminophen 325mg tablet OGT PRN (14:05)
[2021-06-18] MEDS: hydrOXYzine 25 MG tablet OGT SCH (21:55)
[2021-06-18] MEDS: mirtazapine 15mg tablet OGT SCH (21:55)
[2021-06-19] VITALS (21 sets, daily range): BP systolic 71–122; BP diastolic 34–62
[2021-06-19] MEDS: acetaminophen 325mg tablet OGT PRN (00:58)
[2021-06-19 03:02] LABS: MEAN PLATELET VOLUME 9.7 FL (7.4-10.4)
[2021-06-19 03:05] LABS: BASOPHILS # (AUTO) 0.1 X10'3 (0-0.2); BASOPHILS % (AUTO) 0.2 % (0-1); EOSINOPHILS % (AUTO) 0.1 % (0-6); HEMOGLOBIN 8.7 g/dl (12.0-16.0); LYMPHOCYTES # (AUTO) 0.7 X10'3 (1.1-4.8); LYMPHOCYTES % (AUTO) 1.6 % (21-51); MEAN CORPUSCULAR HEMOGLOBIN 29.4 PG (27.0-31.0); MEAN CORPUSCULAR HGB CONC 33.7 g/dL (33.0-36.5); MEAN CORPUSCULAR VOLUME 87.2 FL (78-98); MONOCYTES # (AUTO) 0.8 X10'3 (0-0.9); MONOCYTES % (AUTO) 1.8 % (2-12); NEUTROPHILS # (AUTO) 41.6 X10'3 (1.8-7.7); NEUTROPHILS % (AUTO) 96.3 % (42-75); PLATELET COUNT 351 X10'3 (140-440); RED BLOOD COUNT 2.98 X10'6 (4.20-5.60); RED CELL DISTRIBUTION WIDTH 14.9 % (11.5-14.5)
[2021-06-19 03:07] LABS: WHITE BLOOD COUNT 43.2 X10'3 (4.5-11.0)
[2021-06-19 03:17] LABS: ALBUMIN 1.5 G/DL (3.4-5.0); ANION GAP 12 (8-16); BLOOD UREA NITROGEN 66 MG/DL (7-18); BUN/CREATININE RATIO 35.7 (6.6-38.0); CALCIUM 7.5 MG/DL (8.5-10.1); CHLORIDE 112 MMOL/L (99-107); CREATININE 1.85 MG/DL (0.40-0.90); GLUCOSE 147 MG/DL (70-104); MAGNESIUM 2.1 MG/DL (1.5-2.4); PHOSPHORUS 3.2 MG/DL (2.3-4.5); POTASSIUM 4.4 MMOL/L (3.5-5.1); SODIUM 147 MMOL/L (135-145); eGFR 27 ML/MIN
[2021-06-19 03:27] LABS: NUCLEATED RED BLOOD CELLS 2 /100WBC (0-0); PLATELET ESTIMATE NORMAL; TOTAL CELLS COUNTED 100
[2021-06-19 03:28] LABS: POLYCHROMASIA FEW
[2021-06-19 03:29] LABS: BURR CELLS FEW; LARGE PLATELETS FEW
[2021-06-19] MEDS: ondansetron/PF 4mg/2ml inj IV PRN (03:51)
[2021-06-19] MEDS: pantoprazole 40MG/NS 100ML BAG 100 ML IV SCH ×4 (04:08→21:00)
[2021-06-19] MEDS: NAPROXEN 500 MG PO SCH ×2 (07:26→20:00)
[2021-06-19] MEDS: lactose-reduced food (Ensure Enlive) - 237ml bottle PO SCH ×2 (07:26→17:30)
[2021-06-19] MEDS: nicotine 21mg patch - 24 hr TD SCH (07:27)
[2021-06-19] MEDS: buPROPion 75mg tablet OGT SCH (07:27)
[2021-06-19] MEDS: ceFAZolin/D5W- 1GM premix 50 ML IV SCH ×2 (07:28)
[2021-06-19] MEDS: baclofen 10mg tablet PO PRN (07:28)
[2021-06-19] MEDS: lactobacillus rhamnosus 10,000 MMU CELLS/CAPSULE OGT SCH ×2 (07:28→20:00)
[2021-06-19] MEDS: polyethylene glycol 3350 17gm powd pack OGT SCH (07:43)
[2021-06-19] MEDS: K, MAG and/or Phos replacement - Verify level? MC SCH (07:43)
[2021-06-19] MEDS ORDERED: dextrose 50%-water 50ml dispensing syringe IV ONE ×2 (08:00→22:38)
[2021-06-19] MEDS ORDERED: normal saline 1000ml 1,000 ML IV SCH (11:15)
[2021-06-19 11:37] LABS: BASOPHILS % (AUTO) 0.2 % (0-1); HEMATOCRIT 25.1 % (35.0-45.0); HEMOGLOBIN 8.2 g/dl (12.0-16.0); LYMPHOCYTES # (AUTO) 0.8 X10'3 (1.1-4.8); MEAN CORPUSCULAR HEMOGLOBIN 29.4 PG (27.0-31.0); MEAN PLATELET VOLUME 10.1 FL (7.4-10.4); MONOCYTES # (AUTO) 0.2 X10'3 (0-0.9); RED BLOOD COUNT 2.79 X10'6 (4.20-5.60)
[2021-06-19 11:39] LABS: EOSINOPHILS % (AUTO) 0 % (0-6); LYMPHOCYTES % (AUTO) 11.3 % (21-51); MEAN CORPUSCULAR HGB CONC 32.7 g/dL (33.0-36.5); MEAN CORPUSCULAR VOLUME 89.9 FL (78-98); MONOCYTES % (AUTO) 2.1 % (2-12); NEUTROPHILS # (AUTO) 6.2 X10'3 (1.8-7.7); NEUTROPHILS % (AUTO) 86.4 % (42-75); PLATELET COUNT 332 X10'3 (140-440); RED CELL DISTRIBUTION WIDTH 15.1 % (11.5-14.5); WHITE BLOOD COUNT 7.2 X10'3 (4.5-11.0)
[2021-06-19 12:47] LABS: ABG BASE EXCESS -12.3 mmol/L (-2.0-2.0); ABG HCO3 12.2 mmol/L (22.0-26.0); ABG OXYGEN SATURATION 83.3 % (94-97); ABG PCO2 (T) 23.6 mmHg (32.0-45.0); ABG PO2 (T) 56.1 mmHg (75.0-100.0); FLOW 8 L/min; FMetHb 0.5 % (0.0-1.5); FO2Hb 82.9 % (94-97); TOTAL HEMOGLOBIN 8.6 G/dl (12.0-16.0)
[2021-06-19] MEDS: NORepinephrine 8mg/ 250ml NS 250 ML IV PRN (13:00)
[2021-06-19 13:10] LABS: NUCLEATED RED BLOOD CELLS 15 /100WBC (0-0); PLATELET ESTIMATE NORMAL; TOTAL CELLS COUNTED 100
[2021-06-19 13:12] LABS: BURR CELLS 3+; POLYCHROMASIA FEW
[2021-06-19] MEDS: normal saline 1000ml 1,000 ML IV SCH ×3 (14:47→22:05)
[2021-06-19] MEDS: diatr meglu/diatrizoate 30ml oral sol.-(3 dose) bottle PO SCH ×2 (15:15→16:40)
[2021-06-19] MEDS: piperacillin/tazo 3.375gm/50 ML IV SCH (16:00)
[2021-06-19] MEDS ORDERED: morphine 2 MG/ML inj. syringe IV ONE (16:25)
[2021-06-19] MEDS ORDERED: albumin (Human) 5% 250ml 250 ML IV ONE ×4 (18:05)
[2021-06-19] MEDS ORDERED: midazolam 100mg in NS 100ml 100 ML IV PRN ×2 (18:40→21:40)
[2021-06-19] MEDS ORDERED: [UNRECOGNIZED DRUG - OTHER] IV ONE (18:45)
[2021-06-19] MEDS ORDERED: sevoflurane 250ml liquid IH ONE (18:45)
[2021-06-19] MEDS ORDERED: vasoPRESSIN 20 units/ml inj. ONE (18:45)
[2021-06-19] MEDS ORDERED: DEXTRAN IV ONE (18:45)
[2021-06-19] MEDS ORDERED: NORepinephrine 8 MG in NS 250 ML BAG (32 mcg/ml) IV ONE (18:45)
[2021-06-19] MEDS ORDERED: calcium chloride 100 MG/1 ML inj IV ONE (18:45)
[2021-06-19 18:58] LABS: ABG BASE EXCESS -23.6 mmol/L (-2.0-2.0); ABG HCO3 7.5 mmol/L (22.0-26.0); ABG OXYGEN SATURATION 94.8 % (94-97); ABG PCO2 (T) 37.7 mmHg (32.0-45.0); ABG PO2 (T) 122.1 mmHg (75.0-100.0); FCOHb 0.3 % (0.0-3.9); FMetHb 0.8 % (0.0-1.5); FO2Hb 93.8 % (94-97); PEEP 5 cm H2O; RESPIRATORY RATE 24 b/min; TIDAL VOLUME 375 mL; TOTAL HEMOGLOBIN 8.3 G/dl (12.0-16.0)
[2021-06-19] MEDS ORDERED: sodium bicarbonate (8.4%) 1 mEq/ml syringe IV ONE ×2 (19:15→19:20)
[2021-06-19] MEDS ORDERED: sodium bicarbonate (8.4%) 1 mEq/ml syringe ONE (19:15)
[2021-06-19] MEDS ORDERED: fentaNYL /PF 50mcg/ml 5ml ampule ONE (19:16)
[2021-06-19 20:34] LABS: MEAN PLATELET VOLUME 10.4 FL (7.4-10.4); MONOCYTES # (AUTO) 0.2 X10'3 (0-0.9); NEUTROPHILS # (AUTO) 8.4 X10'3 (1.8-7.7)
[2021-06-19 20:35] LABS: BASOPHILS % (AUTO) 0.4 % (0-1); EOSINOPHILS # (AUTO) 0.1 X10'3 (0-0.9); EOSINOPHILS % (AUTO) 0.6 % (0-6); LYMPHOCYTES # (AUTO) 1.3 X10'3 (1.1-4.8); LYMPHOCYTES % (AUTO) 13.4 % (21-51); MEAN CORPUSCULAR HEMOGLOBIN 28.7 PG (27.0-31.0); MEAN CORPUSCULAR HGB CONC 30.5 g/dL (33.0-36.5); MEAN CORPUSCULAR VOLUME 94.1 FL (78-98); MONOCYTES % (AUTO) 1.9 % (2-12); NEUTROPHILS % (AUTO) 83.7 % (42-75); PLATELET COUNT 326 X10'3 (140-440); RED CELL DISTRIBUTION WIDTH 16.2 % (11.5-14.5)
[2021-06-19 20:44] LABS: HEMATOCRIT 21.7 % (35.0-45.0); HEMOGLOBIN 6.6 g/dl (12.0-16.0)
[2021-06-19] MEDS ORDERED: midazolam 1 mg/ML 2ml injection ONE (20:47)
[2021-06-19 20:51] LABS: ABG BASE EXCESS -21.6 mmol/L (-2.0-2.0); ABG HCO3 8.6 mmol/L (22.0-26.0); ABG OXYGEN SATURATION 96.8 % (94-97); ABG PCO2 (T) 32.3 mmHg (32.0-45.0); ABG PO2 (T) 116.5 mmHg (75.0-100.0); FCOHb 0.3 % (0.0-3.9); FMetHb 0.5 % (0.0-1.5)
[2021-06-19] MEDS: mirtazapine 15mg tablet OGT SCH (21:00)
[2021-06-19] MEDS: hydrOXYzine 25 MG tablet OGT SCH (21:00)
[2021-06-19 21:01] LABS: ALANINE AMINOTRANSFERASE 24 U/L (12-78); ALBUMIN 0.9 G/DL (3.4-5.0); ALBUMIN/GLOBULIN RATIO 0.4 (1.1-1.5); ALKALINE PHOSPHATASE 129 IU/L (46-116); ANION GAP 24 (8-16); ASPARTATE AMINO TRANSFERASE 184 U/L (10-37); BILIRUBIN,TOTAL 0.5 MG/DL (0.1-1.0); BLOOD UREA NITROGEN 70 MG/DL (7-18); BUN/CREATININE RATIO 29.8 (6.6-38.0); CHLORIDE 120 MMOL/L (99-107); CREATININE 2.35 MG/DL (0.40-0.90); POTASSIUM 4.9 MMOL/L (3.5-5.1); TOTAL PROTEIN 3.1 G/DL (6.4-8.2); eGFR 20 ML/MIN
[2021-06-19 21:06] LABS: GLUCOSE 15 MG/DL (70-104); SODIUM 155 MMOL/L (135-145)
[2021-06-19 21:07] LABS: TOTAL CARBON DIOXIDE 11.3 MMOL/L (24-32)
[2021-06-19] MEDS ORDERED: phenylephrine 10mg/ml inj. ONE (21:26)
[2021-06-19] MEDS ORDERED: rocuronium 10mg/ml inj IV ONE (21:26)
[2021-06-19] MEDS ORDERED: heparin 1,000unit/ml 10ml vial 10 ML ONE (21:26)
[2021-06-19] MEDS ORDERED: FENTANYL-0.9 % NACL/PF 100 ML IV PRN (21:40)
[2021-06-19 22:05] LABS: ABG HCO3 9.3 mmol/L (22.0-26.0); ABG OXYGEN SATURATION 96.8 % (94-97); ABG PCO2 (T) 37.6 mmHg (32.0-45.0); ABG PO2 (T) 105.2 mmHg (75.0-100.0); FCOHb 0.3 % (0.0-3.9); FMetHb 0.3 % (0.0-1.5); FO2Hb 96.2 % (94-97); PATIENT TEMPERATURE 34.2; PEEP 5 cm H2O; RESPIRATORY RATE 20 b/min; TIDAL VOLUME 450 mL; TOTAL HEMOGLOBIN 11.5 G/dl (12.0-16.0)
[2021-06-19] MEDS ORDERED: heparin 10,000 units/1 ML INJ IV PRN (22:05)
[2021-06-19 22:15] LABS: OXYGEN SATURATION (MIXED VEN) 90.5 % (60-80); PO2 MIXED VENOUS (TEMP COR) 66.1 mmHg (35-46)
[2021-06-19 22:17] LABS: EOSINOPHILS # (AUTO) 0.2 X10'3 (0-0.9); HEMOGLOBIN 10.4 g/dl (12.0-16.0); LYMPHOCYTES # (AUTO) 1.6 X10'3 (1.1-4.8); LYMPHOCYTES % (AUTO) 15.4 % (21-51); MEAN PLATELET VOLUME 10.2 FL (7.4-10.4)
[2021-06-19 22:19] LABS: BASOPHILS # (AUTO) 0.1 X10'3 (0-0.2); BASOPHILS % (AUTO) 0.5 % (0-1); EOSINOPHILS % (AUTO) 1.6 % (0-6); HEMATOCRIT 32.2 % (35.0-45.0); MEAN CORPUSCULAR HEMOGLOBIN 29.9 PG (27.0-31.0); MEAN CORPUSCULAR HGB CONC 32.2 g/dL (33.0-36.5); MEAN CORPUSCULAR VOLUME 92.8 FL (78-98); MONOCYTES # (AUTO) 0.2 X10'3 (0-0.9); NEUTROPHILS # (AUTO) 8.1 X10'3 (1.8-7.7); NEUTROPHILS % (AUTO) 80.5 % (42-75); PLATELET COUNT 275 X10'3 (140-440); RED BLOOD COUNT 3.47 X10'6 (4.20-5.60); RED CELL DISTRIBUTION WIDTH 15.4 % (11.5-14.5); WHITE BLOOD COUNT 10.1 X10'3 (4.5-11.0)
[2021-06-19 22:24] LABS: ALBUMIN 0.9 G/DL (3.4-5.0); ANION GAP 18 (8-16); BLOOD UREA NITROGEN 71 MG/DL (7-18); BUN/CREATININE RATIO 29.5 (6.6-38.0); CALCIUM 7.1 MG/DL (8.5-10.1); CHLORIDE 120 MMOL/L (99-107); CREATININE 2.41 MG/DL (0.40-0.90); GLUCOSE 99 MG/DL (70-104); POTASSIUM 4.6 MMOL/L (3.5-5.1); SODIUM 150 MMOL/L (135-145); eGFR 20 ML/MIN
[2021-06-19] MEDS: heparin 25,000 UNIT/250ml bag 250 ML IV SCH (22:29)
[2021-06-19 22:32] LABS: TOTAL CARBON DIOXIDE 12.2 MMOL/L (24-32)
[2021-06-19] MEDS ORDERED: sodium bicarbonate (8.4%) inj. 150 MEQ in dextrose 5%-water 1,000 ML IV SCH (22:40)
[2021-06-20] VITALS (12 sets, daily range): BP systolic 56–99; BP diastolic 41–60
[2021-06-20] MEDS: pantoprazole 40MG/NS 100ML BAG 100 ML IV SCH ×4 (00:46→09:15)
[2021-06-20] MEDS: vasopressin inj. 40 UNIT in normal saline 50ml IV soln 38 ML IV SCH ×2 (00:53→06:28)
[2021-06-20] MEDS: NORepinephrine 8mg/ 250ml NS 250 ML IV PRN (00:57)
[2021-06-20 01:19] LABS: ABG BASE EXCESS -21.6 mmol/L (-2.0-2.0); ABG HCO3 9.6 mmol/L (22.0-26.0); ABG OXYGEN SATURATION 95.3 % (94-97); ABG PCO2 (T) 43.8 mmHg (32.0-45.0); FCOHb 0.3 % (0.0-3.9); FMetHb 0.5 % (0.0-1.5); FO2Hb 94.5 % (94-97); PATIENT TEMPERATURE 37.1; PEEP 5 cm H2O; RESPIRATORY RATE 24 b/min; TIDAL VOLUME 450 mL; TOTAL HEMOGLOBIN 11.7 G/dl (12.0-16.0)
[2021-06-20] MEDS: NORepinephrine inj. 32 MG in normal saline 250ml IV soln 218 ML IV SCH ×2 (01:34→08:18)
[2021-06-20] MEDS ORDERED: albumin (Human) 5% 250ml 250 ML IV ONE ×4 (01:40→04:35)
[2021-06-20] MEDS: piperacillin/tazo 3.375gm/50 ML IV SCH ×2 (01:42→08:22)
[2021-06-20] MEDS ORDERED: sodium bicarbonate (8.4%) 1 mEq/ml syringe IV ONE ×3 (02:25→07:45)
[2021-06-20] MEDS ORDERED: epiNEPHrine inj 5 MG in normal saline 250ml IV soln 245 ML IV SCH (02:25)
[2021-06-20 03:46] LABS: HEMOGLOBIN 9.6 g/dl (12.0-16.0)
[2021-06-20 03:47] LABS: ALBUMIN 1.8 G/DL (3.4-5.0); ANION GAP 20 (8-16); BLOOD UREA NITROGEN 70 MG/DL (7-18); BUN/CREATININE RATIO 26.4 (6.6-38.0); CALCIUM 6.8 MG/DL (8.5-10.1); CHLORIDE 115 MMOL/L (99-107); CREATININE 2.65 MG/DL (0.40-0.90); GLUCOSE 177 MG/DL (70-104); MAGNESIUM 1.9 MG/DL (1.5-2.4); POTASSIUM 5.3 MMOL/L (3.5-5.1); SODIUM 149 MMOL/L (135-145); eGFR 18 ML/MIN
[2021-06-20 03:48] LABS: NEUTROPHILS % (AUTO) 81.5 % (42-75)
[2021-06-20 03:49] LABS: BASOPHILS % (AUTO) 0.3 % (0-1); EOSINOPHILS # (AUTO) 0.2 X10'3 (0-0.9); EOSINOPHILS % (AUTO) 1.2 % (0-6); HEMATOCRIT 29.7 % (35.0-45.0); LYMPHOCYTES # (AUTO) 2.1 X10'3 (1.1-4.8); LYMPHOCYTES % (AUTO) 13.8 % (21-51); MEAN CORPUSCULAR HEMOGLOBIN 29.8 PG (27.0-31.0); MEAN CORPUSCULAR HGB CONC 32.3 g/dL (33.0-36.5); MEAN CORPUSCULAR VOLUME 92.3 FL (78-98); MONOCYTES # (AUTO) 0.5 X10'3 (0-0.9); MONOCYTES % (AUTO) 3.2 % (2-12); NEUTROPHILS # (AUTO) 12.2 X10'3 (1.8-7.7); PLATELET COUNT 285 X10'3 (140-440); RED BLOOD COUNT 3.22 X10'6 (4.20-5.60); RED CELL DISTRIBUTION WIDTH 15.4 % (11.5-14.5)
[2021-06-20 03:50] LABS: MEAN PLATELET VOLUME 10.3 FL (7.4-10.4)
[2021-06-20 03:52] LABS: TOTAL CARBON DIOXIDE 13.6 MMOL/L (24-32)
[2021-06-20] MEDS ORDERED: epiNEPHrine inj 10 MG in normal saline 250ml IV soln 240 ML IV SCH (03:53)
[2021-06-20] MEDS ORDERED: dextrose 50%-water 50ml dispensing syringe IV ONE ×2 (04:52→05:45)
[2021-06-20] MEDS: epiNEPHrine inj 5 MG in normal saline 250ml IV soln 245 ML IV SCH ×2 (04:58→06:43)
[2021-06-20] MEDS: heparin 25,000 UNIT/250ml bag 250 ML IV SCH (05:00)
[2021-06-20] MEDS: normal saline 1000ml 1,000 ML IV SCH ×4 (06:05→10:52)
--- NOTE | 2021-06-20 06:30 | NUR ---
Patient in room ICU 2046. I have received report from Dulce Maria HAY and had the opportunity to ask questions and assume patient care.
[2021-06-20] MEDS: polyethylene glycol 3350 17gm powd pack OGT SCH (07:16)
[2021-06-20] MEDS: lactose-reduced food (Ensure Enlive) - 237ml bottle PO SCH (07:16)
[2021-06-20] MEDS: nicotine 21mg patch - 24 hr TD SCH (07:16)
[2021-06-20] MEDS: lactobacillus rhamnosus 10,000 MMU CELLS/CAPSULE OGT SCH (07:17)
[2021-06-20] MEDS: buPROPion 75mg tablet OGT SCH (07:17)
[2021-06-20] MEDS: NAPROXEN 500 MG PO SCH (07:17)
[2021-06-20] MEDS: K, MAG and/or Phos replacement - Verify level? MC SCH (07:17)
[2021-06-20 07:26] LABS: ABG BASE EXCESS -24.2 mmol/L (-2.0-2.0); ABG HCO3 7.6 mmol/L (22.0-26.0); ABG OXYGEN SATURATION 99.1 % (94-97); ABG PCO2 (T) 41.2 mmHg (32.0-45.0); ABG PO2 (T) 296.1 mmHg (75.0-100.0); FMetHb 0.7 % (0.0-1.5); FO2Hb 98.4 % (94-97); PEEP 5 cm H2O; RESPIRATORY RATE 24 b/min; TIDAL VOLUME 450 mL; TOTAL HEMOGLOBIN 8.5 G/dl (12.0-16.0)
[2021-06-20] MEDS ORDERED: calcium chloride 100 MG/1 ML inj IV ONE ×2 (07:45→07:47)
[2021-06-20 08:00] LABS: LARGE PLATELETS FEW; NUCLEATED RED BLOOD CELLS 16 /100WBC (0-0); PLATELET ESTIMATE NORMAL; TOTAL CELLS COUNTED 100
[2021-06-20] MEDS ORDERED: etomidate 2mg/ml inj. ONE (08:00)
[2021-06-20] MEDS ORDERED: rocuronium 10mg/ml inj IV ONE (08:00)
--- NOTE | 2021-06-20 08:00 | NUR ---
Pt. persaud colored with purple, mottled extremities. Unresponsibe. Left pupil 5 mm, right pupil 4 mm. both responsive. Patient on max doses of Epi, Levophed and Vasopressin. Lactic acid 16.4. K 6. Hco3 8.4. Notified Dr. Queen of patient's condition. Additional HCO3 and Calcium given with transient increase in BP. Dr. Queen spoke with patient's son. Code status changed to DNR.
[2021-06-20 08:03] LABS: ANISOCYTOSIS FEW; BURR CELLS 2+; GIANT PLATELET MODERATE; POLYCHROMASIA 1+; SMUDGE CELLS FEW
[2021-06-20] MEDS: epiNEPHrine inj 10 MG in normal saline 250ml IV soln 240 ML IV SCH ×2 (08:03→10:36)
[2021-06-20 08:08] LABS: ALANINE AMINOTRANSFERASE 131 U/L (12-78); ALBUMIN 2.2 G/DL (3.4-5.0); ALBUMIN/GLOBULIN RATIO 1.5 (1.1-1.5); ALKALINE PHOSPHATASE 114 IU/L (46-116); ANION GAP 30 (8-16); BILIRUBIN,TOTAL 0.8 MG/DL (0.1-1.0); BLOOD UREA NITROGEN 65 MG/DL (7-18); BUN/CREATININE RATIO 24.6 (6.6-38.0); CALCIUM 6.1 MG/DL (8.5-10.1); CHLORIDE 114 MMOL/L (99-107); CREATININE 2.64 MG/DL (0.40-0.90); GLUCOSE 247 MG/DL (70-104); PHOSPHORUS 8.2 MG/DL (2.3-4.5); SODIUM 152 MMOL/L (135-145); TOTAL PROTEIN 3.7 G/DL (6.4-8.2); eGFR 18 ML/MIN
[2021-06-20 08:14] LABS: ASPARTATE AMINO TRANSFERASE 1317 U/L (10-37)
[2021-06-20 08:37] LABS: TOTAL CARBON DIOXIDE 8.5 MMOL/L (24-32)
[2021-06-20 09:31] LABS: BASOPHILS # (AUTO) 0.1 X10'3 (0-0.2); LYMPHOCYTES # (AUTO) 2.5 X10'3 (1.1-4.8); LYMPHOCYTES % (AUTO) 13.7 % (21-51)
[2021-06-20 09:33] LABS: BASOPHILS % (AUTO) 0.4 % (0-1); EOSINOPHILS # (AUTO) 0.1 X10'3 (0-0.9); EOSINOPHILS % (AUTO) 0.3 % (0-6); HEMOGLOBIN 7.3 g/dl (12.0-16.0); MEAN CORPUSCULAR HGB CONC 30.6 g/dL (33.0-36.5); MEAN CORPUSCULAR VOLUME 94.7 FL (78-98); MEAN PLATELET VOLUME 10.6 FL (7.4-10.4); MONOCYTES # (AUTO) 0.4 X10'3 (0-0.9); MONOCYTES % (AUTO) 2.2 % (2-12); NEUTROPHILS # (AUTO) 15.4 X10'3 (1.8-7.7); NEUTROPHILS % (AUTO) 83.4 % (42-75); PLATELET COUNT 225 X10'3 (140-440); RED BLOOD COUNT 2.53 X10'6 (4.20-5.60); RED CELL DISTRIBUTION WIDTH 17.1 % (11.5-14.5); WHITE BLOOD COUNT 18.5 X10'3 (4.5-11.0)
[2021-06-20] MEDS ORDERED: acetaminophen 325mg/10.15ml oral unit dose solution OGT PRN ×2 (10:00)
[2021-06-20] MEDS ORDERED: LORazepam 2 mg/ml vial IV PRN (11:35)
[2021-06-20] MEDS ORDERED: morphine 10mg/ml inj. IV PRN (11:35)
--- NOTE | 2021-06-20 11:50 | NUR ---
Dr. Zhou and Dr. Humphries both discussed futility of care with patient's son, Viet. Orders received and patient extubated to comfort care.
--- NOTE | 2021-06-20 12:01 | NUR ---
RN IS TO DOCUMENT YES TO ALL APPLICABLE AREAS Pronouncement of : 1. Time Physician Notified:1205 Dr. Humphries 2. Date of :06/20/2021 3. Time of : 120 4. DNR/Withdraw life support documented:Yes 5. Monitor strip has been placed on chart:Yes 6. Assessment process is of one-minute duration and includes following criteria: a) Patient is unresponsive to all stimuli: Yes b) Pupils fixed and non-reactive:Yes c) Auscultation of precordium reveals absence of heart tones:Yes d) Auscultation of lungs reveals absence of breath sounds:Yes e) Absence of blood pressure / all vital signs:Yes f) QRS complexes are not present on monitor / EKG strip:Yes g) Pacer spikes without capture:N/A 4. Comments:
--- NOTE | 2021-06-20 12:57 | NUR ---
Noted pt has been made DNR w/ comfort care per EMR. Will continue to follow. Addendum: 06/20/21 at [address] Amended: Links added.
[2021-06-20] MEDS ORDERED: vancomycin inj 500 MG in normal saline 100ml IV soln 100 ML IV SCH (13:00)
[2021-06-22] MEDS ORDERED: VANCOMYCIN LEVEL IV ONE (12:30)
[2021-06-23 13:41] LABS: ISTAT ANION GAP 18 (8-12); ISTAT CL 118 mmol/L (99-107); ISTAT K 4.8 mmol/L (3.5-5.1); ISTAT NA 149 mmol/L (135-145)
[2021-06-23 13:42] LABS: ISTAT BUN 65 mg/dL (7-18); ISTAT CREATININE 2.2 mg/dL (0.6-1.1); ISTAT GLUCOSE < 20 mg/dL (70-105); ISTAT IONIZED CALCIUM 0.93 mmol/L (1.03-1.32); ISTAT TOTAL CO2 13 mmol/L (24-32); ISTAT eGFR 22 ML/MIN; POC BUN/CREATININE RATIO 29.5 (6.6-38.0)
[2021-06-23 13:43] LABS: ISTAT HGB 5.8 g/dl (12.0-16.0); ISTAT Hct 17 %PCV (35-48)
[2021-06-23 13:44] LABS: ISTAT K 5.1 mmol/L (3.5-5.1)
[2021-06-23 13:45] LABS: ISTAT CREATININE 2.2 mg/dL (0.6-1.1); POC BUN/CREATININE RATIO 30.5 (6.6-38.0)
[2021-06-23 13:46] LABS: ISTAT HGB 8.2 g/dl (12.0-16.0); ISTAT IONIZED CALCIUM 0.92 mmol/L (1.03-1.32)
== END 2021-06-20 14:26 | DRG 329 ==
LOC: ER 03:22 → ED HOLD 07:01 → ICU 2S 12:59 → PCU 3S 06-16 17:23 → ICU 2S 06-17 05:30
PROVIDERS: ADMIT Internal Medicine Pulmonary Disease; ATTEND Internal Medicine Pulmonary Disease
PROC: 5A1955Z Respiratory Ventilation, Greater than 96 Consecutive Hours (ICD-10-PCS; 2021-06-07)
PROC: 0BH17EZ Insertion of Endotracheal Airway into Trachea, Via Natural or Artificial Opening (ICD-10-PCS; 2021-06-07)
PROC: 30233N1 Transfusion of Nonautologous Red Blood Cells into Peripheral Vein, Percutaneous Approach (ICD-10-PCS; 2021-06-07)
PROC: 0D9670Z Drainage of Stomach with Drainage Device, Via Natural or Artificial Opening (ICD-10-PCS; 2021-06-07)
PROC: 02HV33Z Insertion of Infusion Device into Superior Vena Cava, Percutaneous Approach (ICD-10-PCS; 2021-06-07)
PROC: B548ZZA Ultrasonography of Superior Vena Cava, Guidance (ICD-10-PCS; 2021-06-07)
PROC: 5A0935A Assistance with Respiratory Ventilation, Less than 24 Consecutive Hours, High Flow/Velocity Cannula (ICD-10-PCS; 2021-06-12)
PROC: 5A09357 Assistance with Respiratory Ventilation, Less than 24 Consecutive Hours, Continuous Positive Airway Pressure (ICD-10-PCS; 2021-06-12)
PROC: 5A09357 Assistance with Respiratory Ventilation, Less than 24 Consecutive Hours, Continuous Positive Airway Pressure (ICD-10-PCS; 2021-06-13)
PROC: 5A0945A Assistance with Respiratory Ventilation, 24-96 Consecutive Hours, High Flow/Velocity Cannula (ICD-10-PCS; 2021-06-13)
PROC: 0DB68ZX Excision of Stomach, Via Natural or Artificial Opening Endoscopic, Diagnostic (ICD-10-PCS; 2021-06-17)
PROC: 0D598ZZ Destruction of Duodenum, Via Natural or Artificial Opening Endoscopic (ICD-10-PCS; 2021-06-17)
PROC: 0DBP0ZZ Excision of Rectum, Open Approach (ICD-10-PCS; 2021-06-19)
PROC: 5A1935Z Respiratory Ventilation, Less than 24 Consecutive Hours (ICD-10-PCS; 2021-06-19)
PROC: 0BH17EZ Insertion of Endotracheal Airway into Trachea, Via Natural or Artificial Opening (ICD-10-PCS; 2021-06-19)
PROC: 03HY32Z Insertion of Monitoring Device into Upper Artery, Percutaneous Approach (ICD-10-PCS; 2021-06-19)
PROC: 4A133B1 Monitoring of Arterial Pressure, Peripheral, Percutaneous Approach (ICD-10-PCS; 2021-06-19)
PROC: 4A133J1 Monitoring of Arterial Pulse, Peripheral, Percutaneous Approach (ICD-10-PCS; 2021-06-19)
PROC: 0DBG0ZZ Excision of Left Large Intestine, Open Approach (ICD-10-PCS; principal; 2021-06-19 18:58)
DX: K26.4 Chronic or unspecified duodenal ulcer with hemorrhage (principal); K55.029 Acute infarction of small intestine, extent unspecified; G92.9 Unspecified toxic encephalopathy; A41.9 Sepsis, unspecified organism; J96.00 Acute respiratory failure, unspecified whether with hypoxia or hypercapnia; R65.21 Severe sepsis with septic shock; J69.0 Pneumonitis due to inhalation of food and vomit; N17.9 Acute kidney failure, unspecified; I96 Gangrene, not elsewhere classified; K56.609 Unspecified intestinal obstruction, unspecified as to partial versus complete obstruction; E87.2 Acidosis; K92.1 Melena; E86.1 Hypovolemia; E87.5 Hyperkalemia; I11.0 Hypertensive heart disease with heart failure; F41.9 Anxiety disorder, unspecified; Z66 Do not resuscitate; I50.9 Heart failure, unspecified; G89.29 Other chronic pain; R57.8 Other shock; M54.9 Dorsalgia, unspecified; R10.0 Acute abdomen; Z60.2 Problems related to living alone; J44.9 Chronic obstructive pulmonary disease, unspecified; Z20.822 Contact with and (suspected) exposure to COVID-19; M19.90 Unspecified osteoarthritis, unspecified site; K26.9 Duodenal ulcer, unspecified as acute or chronic, without hemorrhage or perforation; K44.9 Diaphragmatic hernia without obstruction or gangrene; K63.89 Other specified diseases of intestine; Z51.5 Encounter for palliative care; Z87.11 Personal history of peptic ulcer disease; Z90.710 Acquired absence of both cervix and uterus; Z79.899 Other long term (current) drug therapy
CPT/HCPCS: 31500; 36415; 36430; 36556; 36600; 43227; 43239; 43243; 43255; 70450; 71045; 74018; 74176; 76010; 80047; 80048; 80053; 80305; 80320; 80329; 81001; 82140; 82272; 82803; 82810; 82948; 83605; 83735; 84100; 84145; 84478; 85007; 85018; 85025; 85027; 86885; 86900; 86901; 86920; 87040; 87070; 87077; 87081; 87088; 87186; 87635; 88305; 88342; 92508; 92616; 93005; 93306; 93308; 94002; 94003; 94640; 94660; 94760; 94799; 96374; 96375; 97110; 97161; 97530; 97535; 99153; 99291; A4215; A4618; A6258; A6449; A7000; C9113; C9803; G0378; J0171; J0456; J0690; J0692; J1200; J1644; J1650; J2060; J2250; J2270; J2310; J2370; J2405; J2543; J2704; J3010; J3370; J3475; J3480; J3490; J7030; J7050; J7060; J7070; J7100; J7120; P9016; P9045; Q0177; Q9963